=== PATIENT | male | born 1950 | race Caucasian/White ===

== ENCOUNTER → 2017-07-09 08:26 | Outpatient (CLI) | payer MEDICARE, SELFPAY ==
[2017-07-09 12:20] LABS: Anion Gap 6 (5-15); BUN 20 mg/dL (7-18); BUN/Creat Ratio 18.5 RATIO (10-20); Calcium,Total 8.9 mg/dL (8.5-10.1); Chloride 104 mmol/L (98-107); Creatinine, Serum 1.08 mg/dL (0.70-1.30); EST Glomerular Filtration Rate 72 mL/min (>60); Est Glom Filt Rate - Afr Amer 88 mL/min (>60); Glucose 86 mg/dL (74-106); Magnesium 2.1 mg/dL (1.6-2.6); Potassium 3.8 mmol/L (3.5-5.1); Sodium Level 140 mmol/L (136-145); T4 Free Direct 0.92 ng/dL (0.76-1.46); Thyroid Stim Hormone (TSH) 2.46 uIU/mL (0.358-3.74)
== END ==
PROVIDERS: Family Provider Family Medicine; PCP Family Medicine; Visit Provider Family Medicine
DX: R25.2 Cramp and spasm (principal); I10 Essential (primary) hypertension; E78.5 Hyperlipidemia, unspecified
CPT/HCPCS: 36415; 80048; 83735; 84439; 84443

== ENCOUNTER → 2018-01-14 15:01 | Outpatient (CLI) | payer MEDICARE, SELFPAY ==
[2018-01-14 17:27] LABS: Absolute Lymphocyte Count 1.65 X10^3/ul (0.83-4.51); Absolute Neutrophil Count 4.5 X10^3/uL (2.0-7.7); Basophil# 0.04 X10^3/uL; Basophil% 0.6 % (0-1); Eosinophils% 2.8 % (0-5); Hematocrit 43.5 % (40-54); Hemoglobin 14.6 g/dl (13.0-16.5); Lymphocyte # 1.65 X10^3/ul (4.0); Mean Corp Hgb Conc 33.6 g/gl (32-36); Mean Corpuscular Hgb 29.3 pg (27.0-32.0); Mean Corpuscular Volume 87.2 fL (80-94); Mean Platelet Vol. 9.6 fl (6.2-12.0); Monocyte# 0.73 X10^3/uL; Monocyte% 10.2 % (0-10); Neutrophil # 4.53 X10^3/uL (2.7-7.7); Neutrophil % 63.3 % (47-70); Platelet Count 174 K/mm3 (150-450); RBC Distribution Width CV 13.4 % (11.6-14.6); RBC Distribution Width SD 42.6 fl (35.1-43.9); Red Blood Count 4.99 M/mm3 (4.6-6.2); White Blood Count 7.2 K/mm3 (4.4-11.0)
[2018-01-14 17:40] LABS: Anion Gap 11 (5-15); BUN 15 mg/dL (7-18); BUN/Creat Ratio 13.8 RATIO (10-20); Chloride 105 mmol/L (98-107); Creatinine, Serum 1.09 mg/dL (0.70-1.30); EST Glomerular Filtration Rate 72 mL/min (>60); Est Glom Filt Rate - Afr Amer 87 mL/min (>60); Glucose 110 mg/dL (74-106); PSA,Total- Diagnostic 1.24 ng/mL (0.0-4.0); Potassium 3.7 mmol/L (3.5-5.1); Sodium Level 144 mmol/L (136-145)
[2018-01-14 18:08] LABS: POSITIVE COUNT NO; POSITIVE DIFFERENTIAL NO; POSITIVE MORPHOLOGY NO
== END ==
PROVIDERS: Family Provider Family Medicine; PCP Family Medicine; Visit Provider Family Medicine
DX: I10 Essential (primary) hypertension (principal); E78.5 Hyperlipidemia, unspecified; R39.11 Hesitancy of micturition
CPT/HCPCS: 36415; 80048; 84153; 85025

== ENCOUNTER → 2018-02-11 09:42 | Outpatient (CLI) | payer MEDICARE, SELFPAY ==
--- NOTE | 2018-02-11 09:45 | RAD_ITS ---
STUDY: X-RAY - ESOPHAGUS (BARIUM SWALLOW) WITH FLUOROSCOPY REASON FOR EXAM: Male, 67 years old. Dysphasia. TECHNIQUE: 14 fluoroscopic view(s) of the esophagus were obtained following swallowing of barium. FLUOROSCOPY TIME (if supplied): (0:25) minutes/seconds COMPARISON: None. FINDINGS: There is no demonstrated esophageal foreign body. There is no demonstrated stricture or mucosal abnormality. There is a small hiatal hernia of the fundus of the stomach. No evidence of gastric esophageal reflux. The patient ingested a 12 mm tablet of barium without any difficulty. There is atherosclerotic tortuosity of the aortic arch and descending thoracic aorta. Normal visualized pulmonary parenchyma. There are diffuse degenerative changes of the visualized thoracic spine. RAD/Esophagus Only IMPRESSION: Small sliding hiatal hernia without gaseous esophageal reflux. Electronically Signed: Fred Church MD at 8:52 EDT Tel [phone], Service support ,
== END ==
PROVIDERS: Family Provider Family Medicine; PCP Family Medicine; Visit Provider Internal Medicine Gastroenterology
DX: R13.10 Dysphagia, unspecified (principal); K21.9 Gastro-esophageal reflux disease without esophagitis
CPT/HCPCS: 74220

== ENCOUNTER → 2019-01-16 10:30 | Outpatient (CLI) | payer MEDICARE, SELFPAY ==
[2019-01-16 12:47] LABS: Absolute Lymphocyte Count 1.49 X10^3/uL (0.83-4.51); Absolute Neutrophil Count 3.7 X10^3/uL (2.0-7.7); Basophil# 0.05 X10^3/uL; Basophil% 0.8 % (0-1); Eosinophil# 0.17 X10^3/uL; Eosinophils% 2.8 % (0-5); Hematocrit 43.6 % (40-54); Hemoglobin 14.5 g/dL (13.0-16.5); Lymphocyte # 1.49 X10^3/ul (4.0); Lymphocyte % 24.8 % (19-41); Mean Corp Hgb Conc 33.3 g/dL (32-36); Mean Corpuscular Volume 87.2 fL (80-94); Mean Platelet Vol. 9.6 fl (6.2-12.0); Monocyte# 0.63 X10^3/uL; Monocyte% 10.5 % (0-10); NRBC Flagged by Analyzer 0 % (0-5); Neutrophil # 3.67 X10^3/uL (2.7-7.7); Neutrophil % 60.9 % (47-70); Platelet Count 187 K/mm3 (150-450); RBC Distribution Width CV 13.4 % (11.6-14.6); RBC Distribution Width SD 42.5 fl (35.1-43.9)
[2019-01-16 13:22] LABS: ALB/GLOB Ratio 0.9 RATIO (0.9-2.4); AST(SGOT) 31 U/L (15-37); Alanine Aminotransfer ALT/SGPT 40 U/L (16-61); Albumin, Serum 3.9 g/dL (3.2-5.0); Alkaline Phosphatase 83 U/L (45-117); Anion Gap 7 (5-15); BUN 16 mg/dL (7-18); BUN/Creat Ratio 15.7 RATIO (10-20); Calcium,Total 9.2 mg/dL (8.5-10.1); Chloride 109 mmol/L (98-107); Creatinine, Serum 1.02 mg/dL (0.70-1.30); EST Glomerular Filtration Rate 77 mL/min (>60); Est Glom Filt Rate - Afr Amer 93 mL/min (>60); Globulin 4.2 g/dL (2.2-4.2); Glucose 88 mg/dL (74-106); PSA,Total- Diagnostic 1.18 ng/mL (0.0-4.0); Potassium 3.9 mmol/L (3.5-5.1); Protein, Total 8.1 g/dL (6.4-8.2); Sodium Level 141 mmol/L (136-145); Thyroid Stim Hormone (TSH) 1.73 uIU/mL (0.358-3.74)
== END ==
PROVIDERS: Family Provider Family Medicine; PCP Family Medicine; Visit Provider Family Medicine
DX: E78.5 Hyperlipidemia, unspecified (principal); I10 Essential (primary) hypertension; R39.11 Hesitancy of micturition
CPT/HCPCS: 36415; 80053; 84153; 84443; 85025

== ENCOUNTER → 2020-01-17 09:41 | Outpatient (CLI) | payer OTHER, SELFPAY ==
[2020-01-17 12:37] LABS: Absolute Lymphocyte Count 1.45 X10^3/uL (0.83-4.51); Basophil# 0.05 X10^3/uL; Basophil% 0.8 % (0-1); Eosinophil# 0.23 X10^3/uL; Eosinophils% 3.5 % (0-5); Hematocrit 44.5 % (40-54); Hemoglobin 14.8 g/dL (13.0-16.5); Lymphocyte # 1.45 X10^3/ul (4.0); Lymphocyte % 22.1 % (19-41); Mean Corp Hgb Conc 33.3 g/dL (32-36); Mean Corpuscular Hgb 29.2 pg (27.0-32.0); Mean Corpuscular Volume 87.9 fL (80-94); Mean Platelet Vol. 9.7 fl (6.2-12.0); Monocyte# 0.85 X10^3/uL; NRBC Flagged by Analyzer 0 % (0-5); Neutrophil # 3.97 X10^3/uL (2.7-7.7); Neutrophil % 60.4 % (47-70); Platelet Count 187 K/mm3 (150-450); RBC Distribution Width CV 13.2 % (11.6-14.6); RBC Distribution Width SD 42.5 fl (35.1-43.9); Red Blood Count 5.06 M/mm3 (4.6-6.2); White Blood Count 6.6 K/mm3 (4.4-11.0)
[2020-01-17 13:16] LABS: AST(SGOT) 38 U/L (15-37); Alanine Aminotransfer ALT/SGPT 48 U/L (16-61); Albumin, Serum 3.9 g/dL (3.2-5.0); Alkaline Phosphatase 78 U/L (45-117); Anion Gap 5 (5-15); BUN 15 mg/dL (7-18); BUN/Creat Ratio 14.3 RATIO (10-20); Calcium,Total 9.1 mg/dL (8.5-10.1); Chloride 107 mmol/L (98-107); Creatinine, Serum 1.05 mg/dL (0.70-1.30); EST Glomerular Filtration Rate 74 mL/min (>60); Est Glom Filt Rate - Afr Amer 90 mL/min (>60); Globulin 4.1 g/dL (2.2-4.2); Glucose 87 mg/dL (74-106); Potassium 4.1 mmol/L (3.5-5.1); Sodium Level 141 mmol/L (136-145); Thyroid Stim Hormone (TSH) 2.63 uIU/mL (0.358-3.74); Uric Acid 8.1 mg/dL (3.5-7.2)
== END ==
PROVIDERS: PCP Family Medicine; Visit Provider Family Medicine
DX: M10.9 Gout, unspecified (principal); I10 Essential (primary) hypertension; E78.5 Hyperlipidemia, unspecified
CPT/HCPCS: 36415; 80053; 84443; 84550; 85025

== ENCOUNTER → 2020-07-19 11:31 | Outpatient (CLI) | payer OTHER, SELFPAY ==
[2020-07-19 15:31] LABS: Absolute Lymphocyte Count 2.53 X10^3/uL (0.83-4.51); Absolute Neutrophil Count 3.5 X10^3/uL (2.0-7.7); Basophil# 0.05 X10^3/uL; Basophil% 0.7 % (0-1); Eosinophil# 0.19 X10^3/uL; Eosinophils% 2.7 % (0-5); Hemoglobin 15.2 g/dL (13.0-16.5); Lymphocyte # 2.53 X10^3/ul (4.0); Lymphocyte % 35.7 % (19-41); Mean Corpuscular Volume 87.6 fL (80-94); Mean Platelet Vol. 9.5 fl (6.2-12.0); Monocyte# 0.76 X10^3/uL; Monocyte% 10.7 % (0-10); NRBC Flagged by Analyzer 0 % (0-5); Neutrophil # 3.54 X10^3/uL (2.7-7.7); Neutrophil % 49.9 % (47-70); Platelet Count 182 K/mm3 (150-450); RBC Distribution Width CV 13.1 % (11.6-14.6); RBC Distribution Width SD 42.5 fl (35.1-43.9); Red Blood Count 5.25 M/mm3 (4.6-6.2); White Blood Count 7.1 K/mm3 (4.4-11.0)
[2020-07-19 15:41] LABS: AST(SGOT) 33 U/L (15-37); Alanine Aminotransfer ALT/SGPT 52 U/L (16-61); Albumin, Serum 4.2 g/dL (3.2-5.0); Alkaline Phosphatase 87 U/L (45-117); Anion Gap 6 (5-15); BUN 21 mg/dL (7-18); Calcium,Total 9.2 mg/dL (8.5-10.1); Chloride 105 mmol/L (98-107); Creatinine, Serum 1.05 mg/dL (0.70-1.30); EST Glomerular Filtration Rate 74 mL/min (>60); Est Glom Filt Rate - Afr Amer 90 mL/min (>60); Globulin 4.2 g/dL (2.2-4.2); Glucose 82 mg/dL (74-106); Potassium 3.9 mmol/L (3.5-5.1); Protein, Total 8.4 g/dL (6.4-8.2); Sodium Level 140 mmol/L (136-145)
== END ==
PROVIDERS: PCP Family Medicine; Visit Provider Family Medicine
DX: I10 Essential (primary) hypertension (principal); R60.9 Edema, unspecified; R23.3 Spontaneous ecchymoses
CPT/HCPCS: 36415; 80053; 85025

== ENCOUNTER → 2020-10-31 13:58 | Outpatient (CLI) | payer MEDICARE, SELFPAY ==
[2020-10-31 15:25] LABS: PSA,Total - Annual Screen 1.34 ng/mL (0.00-4.00)
== END ==
PROVIDERS: PCP Family Medicine; Referring Provider Urology; Visit Provider Urology
DX: Z12.5 Encounter for screening for malignant neoplasm of prostate (principal)
CPT/HCPCS: 36415; 84153; G0103

== ENCOUNTER 2021-08-21 12:35 | Outpatient (CLI) | payer MEDICARE, SELFPAY ==
--- NOTE | 2021-08-21 12:38 | CT_ITS ---
STUDY: CT RIGHT LOWER EXTREMITY REASON FOR EXAM: Right knee osteoarthritis, surgical planning. TECHNIQUE: Transaxial CT imaging of the lower extremity was performed. Coronal and sagittal images were reformatted. Individualized dose optimization techniques were used for this CT. COMPARISON: MRI images 09/23/2011. FINDINGS: Knee: There are marginal osteophytes of the medial femorotibial compartment and joint space narrowing (coronal image 26). There is preservation of the joint space of the lateral femorotibial compartment. There are small marginal osteophytes of the patellofemoral compartment. There is vacuum phenomenon in the medial femorotibial compartment and a small ossification at the peripheral aspect of the medial femorotibial compartment (coronal reconstruction 28). There is a small popliteal cyst (sagittal reconstruction 51). There is vascular calcification. Hip: There is preservation of joint space. Ankle: Normal tibiotalar, posterior subtalar and talonavicular articulations. There is vascular calcification. CT/Extremity Lower without Contra IMPRESSION: Right knee osteoarthritis. Electronically Signed: Anoop Tabares MD at 14:59 EDT ,
== END 2021-08-21 23:59 | disposition home or self-care (01) ==
LOC: CT 12:36
PROVIDERS: PCP Family Medicine; Referring Provider Orthopaedic Surgery; Visit Provider Orthopaedic Surgery
DX: M17.0 Bilateral primary osteoarthritis of knee (principal); M21.161 Varus deformity, not elsewhere classified, right knee
CPT/HCPCS: 73700

== ENCOUNTER 2021-09-08 07:08 | Day surgery (SDC) | payer MEDICARE, SELFPAY ==
--- NOTE | 2021-08-22 09:38 | EKG12_ITS ---
Test Reason : PRE OP Blood Pressure : / mmHG Vent. Rate : 050 BPM Atrial Rate : 050 BPM P-R Int : 194 ms QRS Dur : 090 ms QT Int : 468 ms P-R-T Axes : 023 -34 021 degrees QTc Int : 426 ms Sinus bradycardia Left axis deviation Abnormal ECG Confirmed by ROGELIO CASTELLANOS, MARIELLA ([id number]), editor farm journal CARLITOS STEELE ([id number]) on 08/22/2021 2:22:53 PM Referred By: Tian Dexter Confirmed By:TERRY MERCADO MD
--- NOTE | 2021-08-22 09:39 | RAD_ITS ---
STUDY: X-RAY CHEST REASON FOR EXAM: Male, 71 years old. PRE OP TECHNIQUE: PA and lateral views of the chest. COMPARISON: Comparison is made with prior study dated 06/20/2012. FINDINGS: Stable elevation of the right hemidiaphragm. Minimal increased linear markings at the left lung base suggests some mild linear scarring. There is no demonstrated pleural abnormality. Normal size heart. Normal mediastinum and jane. Normal visualized pulmonary arteries. There is atherosclerotic tortuosity of the aortic arch and descending thoracic aorta. There are diffuse degenerative changes of the visualized thoracic spine. Normal visualized ribs, clavicles, and shoulders. There is no demonstrated abnormality of the visualized soft tissue structures of the upper abdomen. RAD/Chest PA and Lateral IMPRESSION: No acute abnormality is seen. Electronically Signed: Fred Church MD at 13:01 EDT ,
[2021-08-22 10:07] LABS: Absolute Lymphocyte Count 2.37 X10^3/uL (0.83-4.51); Absolute Neutrophil Count 4.1 X10^3/uL (2.0-7.7); Basophil# 0.04 X10^3/uL; Basophil% 0.5 % (0-1); Eosinophil# 0.18 X10^3/uL; Eosinophils% 2.4 % (0-5); Hematocrit 43.7 % (40-54); Lymphocyte # 2.37 X10^3/ul (0.83-4.51); Mean Corp Hgb Conc 34.3 g/dL (32-36); Mean Corpuscular Hgb 29.2 pg (27.0-32.0); Mean Platelet Vol. 9.3 fl (6.2-12.0); Monocyte% 11.8 % (0-10); NRBC Flagged by Analyzer 0 % (0-5); Neutrophil # 4.13 X10^3/uL (2.7-7.7); Neutrophil % 53.9 % (47-70); Platelet Count 175 K/mm3 (150-450); RBC Distribution Width CV 13.2 % (11.6-14.6); RBC Distribution Width SD 41.1 fl (35.1-43.9); Red Blood Count 5.14 M/mm3 (4.6-6.2); White Blood Count 7.7 K/mm3 (4.4-11.0)
[2021-08-22 11:14] LABS: Anion Gap 5 (5-15); BUN 26 mg/dL (7-18); BUN/Creat Ratio 25.5 RATIO (10-20); Calcium,Total 8.9 mg/dL (8.5-10.1); Chloride 105 mmol/L (98-107); Creatinine, Serum 1.02 mg/dL (0.70-1.30); EST Glomerular Filtration Rate 76 mL/min (>60); Est Glom Filt Rate - Afr Amer 93 mL/min (>60); Glucose 89 mg/dL (74-106); Potassium 3.7 mmol/L (3.5-5.1); Sodium Level 138 mmol/L (136-145)
[2021-09-08] VITALS (11 sets, daily range): BP systolic 107–157; BP diastolic 57–94; PULSE 48–63; RESP 13–18; TEMP 36.1–36.6; O2SAT 30–100; BMI 35.6
--- NOTE | 2021-09-08 | KNEE_PTH ---
PATIENT: RANDY FIGUEROA [place] [facility] [place][id number] AGE/SX: 71/M ROOM: RE09/08/[address]: Dr. Tian Dexter DO : 1950 BED: DIS: 09/08/2021 SPEC #: [id number] RECD: 09/08/21 13:07 STATUS: NEELAM YO #: [id number] KRISTIN: 09/08/21 00:[address]: Tian Dexter DEPT: SURGICAL PATHOLOGY RECD BY: Nadri íRos ENTERED: 09/08/21 13:07 SP TYPE: TOTAL KNEE OTHR DR: Dr. Wei Moreno MD Tissues: Knee, NOS Procedures: Decalcification bone/plaque Surgery Specimen Level IV HEADER OPERATION: ERAS, total knee replacement robotic arm assist PRE-OP DIAGNOSIS: Grade 4 osteoarthritis TISSUE SUBMITTED: Right knee bone MICROSCOPIC DIAGNOSIS Right knee bone, total knee replacement/resection: Pieces of bone with degenerative osteoarthritic changes. Fibroadipose tissue, fibroconnective tissue and reactive synovial tissue. BOSSMAN:myriam 09/11/2021 MICROSCOPIC DESCRIPTION Slides are reviewed. GROSS DESCRIPTION Received is one container designated bone and soft tissue right knee. The specimen consists of multiple fragments of [place]-yellow bone measuring in aggregate 11 x 10 x 3.5 cm. Also in the specimen container are multiple fragments of yellow-white soft tissue measuring in aggregate 9 x 8 x 3 cm. A number of bony fragments contain articular surfaces consistent with tibial plateau and femoral condyle and displaying prominent osteophyte formation, eburnation, and bone erosion. Naval Designer sections are submitted in two cassettes as follows: 1 - soft tissue, 2 - bone after decalcification. / BOSSMAN:myriam 09/08/2021 TC:5 [facility]: [id number], [id number]
[2021-09-08] MEDS: Lactated Ringers 1,000 ML 999 ML IV ×2 (07:00)
[2021-09-08] MEDS: Acetaminophen 500 MG Tablet 1000 MG PO ×2 (07:00→14:53)
[2021-09-08] MEDS: Lactated Ringers 1,000 ML 75 ML IV (07:00)
[2021-09-08] MEDS: Lactated Ringers 1,000 ML 125 ML IV ×2 (07:00→13:54)
[2021-09-08] MEDS: Gabapentin 600 MG Tablet PO (07:00)
[2021-09-08 08:01] LABS: Bedside Glucose 82 mg/dL (74-106)
[2021-09-08] MEDS: TXA 1000mg in NS100 100ml (IVPB at Incision) 660 MG IV (10:35)
[2021-09-08] MEDS: Clindamycin 900 MG/50 ML BAG 75 MG IV ×2 (10:45→14:53)
[2021-09-08] MEDS: TXA 1000mg in NS100 100ml (IVPB at Closure) 660 MG IV (11:53)
--- NOTE | 2021-09-08 12:19 | OP.PCM_ITS ---
Report of Operation Date of Procedure: 09/08/21 Pre-Operative Diagnosis: OA right knee Post-Operative Diagnosis: same Surgery/Procedure Performed:: Right TKR Description of Surgical Findings:: Report of Operation Date of Procedure: 09/08/2021 Preoperative Diagnosis: [ right ] knee primary osteoarthritis Postoperative Diagnosis: [ right ] knee primary osteoarthritis Operation: Robotic Assisted Knee Total Arthroplasty, [right ] knee Surgeon: Dr Tian Dexter DO Parts Department Manager: John Sierra PA-C Anesthesia: spinal Anesthesiologist: Wyatt Dasilva M.D. Findings: Stable knee with good patella tracking Specimen(s): Bony cuts Complications: No intraoperative complications Estimated Blood Loss: 30 cc IV Fluids: 1000 cc crystalloid Implants Used: 1. [employer] press-fit CR size 4 femur 2. [place] [employer] size 5 tibia 3. 35 mm patella 4. 10 mm CS polyethylene Brief History Operative Indications: [ (71 y/o male) ] with history of [ right ] knee osteoarthrosis with radiographic findings with loss of joint space, osteophyte formation and subchondral sclerosis. Failed conservative measures as mentioned in the H&P. Discussion of total knee arthroplasty as well as risk and benefits were discussed with the patient including but not limited to blood loss, DVTs, PEs, neurovascular damage, general risk of anesthesia including loss of life, and stiffness or instability were also discussed with the patient. Patient demonstrated understanding and was able to sign informed consent. Procedure: On the date of procedure, patient's [right ] lower extremity was marked in the preoperative area. The patient was then taken back to the operating room where that patient was placed on the table in the supine position. All bony prominences were identified and well-padded. Anesthesia assumed control of the C-spine and airway throughout the remainder of the procedure. A tourniquet was placed on the [right ] upper thigh and the leg was prepped in a sterile fashion. The surgeon then scrubbed at this time. Upon reentering the room, the [right ] lower extremity was draped in a standard orthopedic fashion. A timeout was then called and everyone agreed upon the side, the site, the procedure to be performed, patient's identity and antibiotics given. Esmarch bandage was used to exsanguinate the extremity and the tourniquet was placed up to 250 mmHg with the knee in flexion. A midline skin incision was made and a sharp dissection was taken down through skin, subcutaneous tissue and fat. The standard medial parapatellar incision was made and the patella was subluxed laterally. An appropriate deep MCL release was done and the fat pad was resected. Our attention was then directed to the patella. The patella was everted and a flat resection was made. The knee was then flexed up and 2 femoral pins were placed inside the incision and 2 tibial pins were placed outside the incision in the medial tibia bicortically. Once this was completed, the 2 checkpoints in the femur and tibia were placed. Knee was then flexed up and the bony landmarks were registered. Once the was completed, the knee taken through range of motion and manually stressed allowing us to plan for an appropriate tibial cut. The robotic arm was brought into the field sterilely and checkpoint and saw were registered. Based on the patient's deformity, the tibial cut was made in [2 degrees varus ]. At this time, the tensioner was then placed in the joint and ligament tension was checked at 90 degrees and full extension. Based on the patient's ligamentous tension, appropriate adjustments were made to the operative plan and ligament releases were done. Once we were happy with our operative plan with balanced flexion and extension gaps, our attention was directed to the femur. The robot was brought into the field sterilely and registered. Posterior condylar cuts, anterior chamfer cuts and anterior cuts were appropriately made for a [ size 4 ] femur. When these were completed, the saws were switched out in the distal femoral and posterior chamfer cuts were made. Protecting the soft tissue throughout this time. A [size 5 ] base plate was selected. The knee was flexed to 90 degrees and soft tissues and posterior osteophytes were removed from the joint. 40 cc of the periarticular injection was injected into the posterior medial corner of the joint. The appropriate trials were then placed on the femur and tibia. A trial polyethylene was trialed to ensure proper balancing and stability of the knee. The appropriate tibial internal rotation was then marked with a bovie. Our attention was then directed to the patella. The lug holes were drilled and the patella trial was placed. Patellar tracking was checked and deemed appro priate. Once we were happy, lug holes were drilled for the femur and trial components were removed. The tibia was subluxed and pinned into place and the keel was punched and drilled appropriately. Final components were verified and opened. The wound was copiously irrigated with normal saline. The components were impacted into place with the tibia, femur and finally the patella. The trial poly component was placed and the knee was placed in full extension. The tracking, alignment and balance were verified and a [ 10 mm CS ] polyethylene component was placed. Once the final components were placed an Irrisept lavage was performed and the wound was copiously irrigated with normal saline solution and the periarticular injection was given. the wound was closed in a layer-pagan fashion using #1 vicryl interrupted sutures for the arthrotomy, 2-0 interrupted vicryl suture for the subcuticular layer and aileen for final skin closure. A sterile compressive dressing was then placed. The patient was then awakened from anesthesia, transferred to the [facility] and transferred to the PACU for recovery. My physician operations administrative assistant was a vital part of this case. He was important in appropriate retraction during the case, and protection of soft tissues during bony cuts. His intimate knowledge of the case and my steps aided in safe and expedient completion of the procedure as well as appropriate position of the leg during the case. He was also vital in assisting with closure under my direct supervision. Due to the complexity of this case, robotic arm was used to assist in the surgery to improve accuracy and clinical outcomes. Post-op Plan: DVT ppx; ASA 81 mg BID, thigh high compression stockings Follow up: in office in 2 weeks for wound check PT: to start POD #0 at hospital, outpatient PT should be arranged. Preoperative antibiotic: Clindamycin 900 mg IV Tian Dexter DO Surgeon: [facility] application development liaison: John Sierra Type of Anesthesia: Spinal Anesthesiologist: Wyatt Dasilva Estimated Blood Loss (mL): 30 cc Fluids Replaced: 1000 cc crystalloid Admit VTE Documentation VTE Present on Admission: No VTE Mechan Device Prophylaxis: SCD's and Thigh High UBALDO Hose VTE Pharm Prophylaxis ordered?: Yes
--- NOTE | 2021-09-08 12:55 | RAD_ITS ---
INDICATION: post op TKR -- in PACU EXAMINATION/TECHNIQUE: X-RAY - RIGHT XR Knee 1 or 2 Views 2 VIEWS COMPARISON: None. FINDINGS: Unremarkable alignment of the femoral and tibial prosthesis. Postoperative changes visualized with soft tissue prominence. Overlying surgical aileen are seen. Degenerative bone changes are seen, no evidence of lytic or sclerotic bone lesions is seen. No evidence of periosteal reaction. RAD/Knee 1 or 2 Views IMPRESSION: Postoperative changes, unremarkable alignment of the right knee prosthesis. Electronically Signed: Christiano Murillo MD at 13:39 EDT ,
[2021-09-08] MEDS: oxyCODONE 5 MG Tablet PO (14:53)
== END 2021-09-08 17:24 | disposition home or self-care (01) ==
LOC: SDC 07:11 → AC 07:12
PROVIDERS: Anesthesiology; PCP Family Medicine; Referring Provider Orthopaedic Surgery; Visit Provider Orthopaedic Surgery
PROC: 0SRC0JZ Replacement of Right Knee Joint with Synthetic Substitute, Open Approach (ICD-10-PCS; CPT 27447; principal; 2021-09-08 09:30)
DX: M17.11 Unilateral primary osteoarthritis, right knee (principal); C80.1 Malignant (primary) neoplasm, unspecified; I10 Essential (primary) hypertension; E78.00 Pure hypercholesterolemia, unspecified; Z87.442 Personal history of urinary calculi; M10.9 Gout, unspecified; G47.30 Sleep apnea, unspecified
CPT/HCPCS: 27447; 01402; 36415; 71046; 73560; 80048; 82962; 83036; 83735; 85025; 87077; 87081; 88305; 88311; 93005; 97162; C1776; J7120; J2405

== ENCOUNTER → 2021-09-15 | Outpatient (CLI) | payer MEDICARE, SELFPAY ==
--- NOTE | 2021-09-15 13:19 | VDLE_ITS ---
Reason For Study: Pain RIGHT GSV is normal. CFV is compressible, spontaneous, phasic, competent and demonstrates normal augmentation. FV is compressible, spontaneous, phasic, competent and demonstrates normal augmentation. POP V is compressible, spontaneous, phasic, competent and demonstrates normal augmentation. T/P Trunk is compressible. PTV is compressible. RT PerV is compressible. Procedure This is a venous duplex using B-mode, color flow and spectral Doppler. Exam performed in department. A preliminary report was called and/or faxed to [facility]. VL/Venous Duplex US, Unilateral Interpretation Summary Deep veins of the right lower extremity are patent and compressible segmentally . There is no evidence of right lower extremity deep vein thrombosis. Valvular competence savannah ears intact within the proximal deep venous system on the right . The right great saphenous vein a ppears patent and compressible segmentally. Ordering Physician: Tian Dexter Referring Physician: Wei Moreno Performed By: Gwendolyn Downing RVT
== END | disposition home or self-care (01) ==
LOC: CVS 12:38
PROVIDERS: PCP Family Medicine; Visit Provider Orthopaedic Surgery
DX: M79.661 Pain in right lower leg (principal)
CPT/HCPCS: 93971

== ENCOUNTER → 2021-12-30 | Outpatient (CLI) | payer MEDICARE, SELFPAY ==
--- NOTE | 2021-12-30 07:38 | CT_ITS ---
STUDY: 60 CT SCAN LOWER EXTREMITY LEFT REASON FOR EXAM: Male, 71 years old. UNILATERAL PRIMARY OSTEOARTHRITIS, L KNEE. NIKITA protocol. RADIATION DOSAGE (If Supplied By Facility): CTDIvol = ( 18.72 ) mGy, DLP = ( 1257.98 ) mGycm. Individualized dose optimization techniques were used for this CT.? TECHNIQUE: Multiple axial tomographic images of the left hip, left knee and left ankle joints were obtained. Coronal and sagittal construction was obtained as well. COMPARISON: None. FINDINGS: Imaging of the hip joint was obtained. Minimal joint space narrowing. No bony abnormality is seen. Imaging of the knee joint was obtained. There is a marked degree of joint space narrowing with degenerative spur formation involving the medial compartment of the knee joint. This also evidence of a loose intra-articular bodies in the posterior aspect of the knee joint. Mild patellofemoral osteoarthritis. Imaging of the ankle joint was obtained. No significant abnormality is seen. CT/Extremity Lower without Contra IMPRESSION: Moderate degree of joint space narrowing involving the medial compartment of the knee joint with degenerative spur formation and posterior intra-articular loose bodies. Electronically Signed: Fred Church MD at 11:01 EDT ,
== END | disposition home or self-care (01) ==
PROVIDERS: PCP Family Medicine; Referring Provider Orthopaedic Surgery; Visit Provider Orthopaedic Surgery
DX: M17.12 Unilateral primary osteoarthritis, left knee (principal)
CPT/HCPCS: 73700

== ENCOUNTER 2022-01-12 05:18 | Day surgery (SDC) | payer MEDICARE, SELFPAY ==
--- NOTE | 2022-01-01 09:19 | EKG12_ITS ---
Test Reason : PRE-OP Blood Pressure : / mmHG Vent. Rate : 055 BPM Atrial Rate : 055 BPM P-R Int : 188 ms QRS Dur : 084 ms QT Int : 448 ms P-R-T Axes : 022 -32 -07 degrees QTc Int : 428 ms Sinus bradycardia Left axis deviation Inferior infarct , age undetermined Abnormal ECG Confirmed by MARC CASTELLANOS, DEBORAH ([id number]), supervising editor trailer CARLITOS STEELE ([id number]) on 01/02/2022 1:51:23 PM Referred By: Tian Dexter Confirmed By:DEBORAH TRAN MD
[2022-01-01 10:38] LABS: Absolute Lymphocyte Count 2.23 X10^3/uL (0.83-4.51); Absolute Neutrophil Count 3.8 X10^3/uL (2.0-7.7); Basophil# 0.04 X10^3/uL; Basophil% 0.6 % (0-1); Eosinophil# 0.25 X10^3/uL; Eosinophils% 3.5 % (0-5); Hematocrit 43.1 % (40-54); Hemoglobin 14.3 g/dL (13.0-16.5); Lymphocyte # 2.23 X10^3/ul (0.83-4.51); Mean Corp Hgb Conc 33.2 g/dL (32-36); Mean Corpuscular Hgb 28.3 pg (27.0-32.0); Mean Corpuscular Volume 85.2 fL (80-94); Mean Platelet Vol. 9.3 fl (6.2-12.0); Monocyte# 0.85 X10^3/uL; Monocyte% 11.8 % (0-10); NRBC Flagged by Analyzer 0 % (0-5); Neutrophil # 3.79 X10^3/uL (2.7-7.7); Neutrophil % 52.7 % (47-70); Platelet Count 201 K/mm3 (150-450); RBC Distribution Width SD 43.2 fl (35.1-43.9); Red Blood Count 5.06 M/mm3 (4.6-6.2); White Blood Count 7.2 K/mm3 (4.4-11.0)
[2022-01-01 11:12] LABS: Hemoglobin A1c 5.3 % (3.8-5.6)
[2022-01-01 11:16] LABS: Magnesium 2.1 mg/dL (1.6-2.6); PSA,Total - Annual Screen 1.35 ng/mL (0.00-4.00)
[2022-01-01 11:21] LABS: Albumin, Serum 3.7 g/dL (3.2-5.0); Anion Gap 6 (5-15); BUN 18 mg/dL (7-18); BUN/Creat Ratio 18.3 RATIO (10-20); Calcium,Total 9.1 mg/dL (8.5-10.1); Chloride 105 mmol/L (98-107); Creatinine, Serum 0.98 mg/dL (0.70-1.30); EST Glomerular Filtration Rate 80 mL/min (>60); Est Glom Filt Rate - Afr Amer 96 mL/min (>60); Glucose 80 mg/dL (74-106); Potassium 3.5 mmol/L (3.5-5.1); Sodium Level 139 mmol/L (136-145)
--- NOTE | 2022-01-06 13:41 | CASEMGMT ---
ADRIANA HOOKS Assessment: TC to pt for initial transition planning/care coordination assessment. ADRIANA HOOKS introduced self and role at [facility], pt voices understanding and consents to assessment. Pt is A/O x4 and answers all questions appropriately at this time. Care providers, pharmacy, and demographics verified/updated. Admitting Dx: L Total Knee with NIKITA PCP:Josh Specialists:[facility], ortho; Alonso, derm; Christina, uro; Sibilia, pulm Preferred Pharmacy: [facility] [place] Insurance: [facility] [employer] Prescription Benefit: yes LW/HPOA: Pt states he has a LW/DPOA and his DPOA is his . He is aware he can bring in to be scanned into his chart on day of surgery as this is not on file. LNOK: Bettina Miller, Living Arrangements: Pt lives with in a single story house with 3 steps to enter with a rail. Pt reports he is I in ADL's and denies concerns at home. Transportation: Pt drives self and denies concerns with transportation. Pt states his is able to transport him until he can drive again post surgery. DME/HHC/SNF: Pt has a FWW and cane that he does not normally use, grab bars in the bathroom and a CPAP. Pt denies hx of HHC or SNF stays. Pt states no concerns with going home at time of dc. He states he had his other knee replaced this year. Pt has his first outpt therapy appt set up at [facility] on 01/14/2022. Pt states no further concerns/needs. CM to follow. Advised pt to ask CM if any further question/concerns/needs arise when pt hospitalized, voices understanding. Pt Goal: Home with outpt therapy already set up. Plan: Home with outpt therapy already set up.
[2022-01-12] VITALS (13 sets, daily range): BP systolic 112–160; BP diastolic 58–79; PULSE 66–98; RESP 16–20; TEMP 36.2–37; O2SAT 90–98; BMI 34.7
--- NOTE | 2022-01-12 | KNEE_PTH ---
PATIENT: RANDY FIGUEROA LOC: [facility] – [place] U#:[id number] AGE/SX: 71/M ROOM: RE01/12/[address]: Dr. Tian Dexter DO : 1950 BED: DIS: 01/12/2022 SPEC #: [id number] RECD: 01/12/22 18:18 STATUS: NEELAM RELeandro #: [id number] KRISTIN: 01/12/22 00:[address]: Tian Dexter DEPT: SURGICAL PATHOLOGY RECD BY: Nadir Ríos ENTERED: 01/13/22 10:52 SP TYPE: TOTAL KNEE OTHR DR: MD Dr. José Clark MD Dr. Scott Hannan, MD Tissues: Knee, NOS Procedures: Decalcification bone/plaque Surgery Specimen Level IV HEADER OPERATION: ERAS, total knee replacement robotic arm assist PRE-OP DIAGNOSIS: Osteoarthritis left knee TISSUE SUBMITTED: Bone and soft tissue of left knee MICROSCOPIC DIAGNOSIS Bone and soft tissue of left knee, total knee resection: Severe degenerative joint disease. Mild synovial hyperplasia. AM:myriam 01/16/2022 MICROSCOPIC DESCRIPTION Slides are reviewed. GROSS DESCRIPTION Received is one container designated bone and soft tissue left knee. The specimen consists of multiple fragments of [place]-yellow bone measuring in aggregate 15 x 13 x 1.5 cm. Also in the specimen container are multiple fragments of yellow-white soft tissue measuring in aggregate 11 x 9 x 2.5 cm. A number of bony fragments contain articular surfaces consistent with tibial plateau and femoral condyle and displaying prominent osteophyte formation, eburnation, and bone erosion. Support Coordinator sections are submitted in two cassettes as follows: 1 - soft tissue, 2 - bone after decalcification. / AM:myriam 01/13/2022 :5 CPT: 85219, [id number]
[2022-01-12] MEDS: Lactated Ringers 1,000 ML 15 ML IV (06:15)
[2022-01-12] MEDS: Gabapentin 600 MG Tablet PO (06:16)
[2022-01-12] MEDS: Acetaminophen 500 MG Tablet 1000 MG PO (06:16)
[2022-01-12 07:15] LABS: Bedside Glucose 79 mg/dL (74-106)
[2022-01-12] MEDS: 0.9% Normal Saline 1,000 ML 125 ML IV (08:00)
[2022-01-12] MEDS: Lactated Ringers 1,000 ML 125 ML IV (08:00)
[2022-01-12] MEDS: TXA 1000mg in NS100 100ml (IVPB at Incision) 660 MG IV (08:17)
[2022-01-12] MEDS: TXA 1000mg in NS100 100ml (IVPB at Closure) 660 MG IV (09:19)
--- NOTE | 2022-01-12 09:37 | OP.PCM_ITS ---
Report of Operation Date of Procedure: 01/12/22 Pre-Operative Diagnosis: OA left knee Post-Operative Diagnosis: same Surgery/Procedure Performed:: Left TKR Description of Surgical Findings:: Report of Operation Date of Procedure: 01/12/22 Preoperative Diagnosis: [ left ] knee primary osteoarthritis Postoperative Diagnosis: [left ] knee primary osteoarthritis Operation: Robotic Assisted Knee Total Arthroplasty, [left ] knee Surgeon: Dr Tian Dexter DO Director Of Strategic Partnerships: John Sierra PA-C Anesthesia: general Anesthesiologist: Tomás Elise M.D. Findings: Stable knee with good patella tracking Specimen(s): Bony cuts Complications: No intraoperative complications Estimated Blood Loss: 20 cc IV Fluids: 1000 cc crystalloid Implants Used: 1. Kathy Triathlon press-fit CR size 4 femur 2. Kathy Triathlon size 5 tibia 3. 35 mm patella 4. 9 mm CS polyethylene Brief History Operative Indications: [ (71 y/o male) ] with history of [left ] knee osteoarthrosis with radiographic findings with loss of joint space, osteophyte formation and subchondral sclerosis. Failed conservative measures as mentioned in the H&P. Discussion of total knee arthroplasty as well as risk and benefits were discussed with the patient including but not limited to blood loss, DVTs, PEs, neurovascular damage, general risk of anesthesia including loss of life, and stiffness or instability were also discussed with the patient. Patient demonstrated understanding and was able to sign informed consent. Procedure: On the date of procedure, patient's [left ] lower extremity was marked in the preoperative area. The patient was then taken back to the operating room where that patient was placed on the table in the supine position. All bony prominences were identified and well-padded. Anesthesia assumed control of the C-spine and airway throughout the remainder of the procedure. A tourniquet was placed on the [left ] upper thigh and the leg was prepped in a sterile fashion. The surgeon then scrubbed at this time. Upon reentering the room, the [left ] lower extremity was draped in a standard orthopedic fashion. A timeout was then called and everyone agreed upon the side, the site, the procedure to be performed, patient's identity and antibiotics given. Esmarch bandage was used to exsanguinate the extremity and the tourniquet was placed up to 250 mmHg with the knee in flexion. A midline skin incision was made and a sharp dissection was taken down through skin, subcutaneous tissue and fat. The standard medial parapatellar incision was made and the patella was subluxed laterally. An appropriate deep MCL release was done and the fat pad was resected. Our attention was then directed to the patella. The patella was everted and a flat resection was made. The knee was then flexed up and 2 femoral pins were placed inside the incision and 2 tibial pins were placed outside the incision in the medial tibia bicortically. Once this was completed, the 2 checkpoints in the femur and tibia were placed. Knee was then flexed up and the bony landmarks were registered. Once the was completed, the knee taken through range of motion and manually stressed allowing us to plan for an appropriate tibial cut. The robotic arm was brought into the field sterilely and checkpoint and saw were registered. Based on the patient's deformity, the tibial cut was made in [ 1 degree varus ]. At this time, the tensioner was then placed in the joint and ligament tension was checked at 90 degrees and full extension. Based on the patient's ligamentous tension, appropriate adjustments were made to the operative plan and ligament releases were done. Once we were happy with our operative plan with balanced flexion and extension gaps, our attention was directed to the femur. The robot was brought into the field sterilely and registered. Posterior condylar cuts, anterior chamfer cuts and anterior cuts were appropriately made for a [ size 4 ] femur. When these were completed, the saws were switched out in the distal femoral and posterior chamfer cuts were made. Protecting the soft tissue throughout this time. A [size 5 ] base plate was selected. The knee was flexed to 90 degrees and soft tissues and posterior osteophytes were removed from the joint. 40 cc of the periarticular injection was injected into the posterior medial corner of the joint. The appropriate trials were then placed on the femur and tibia. A trial polyethylene was trialed to ensure proper balancing and stability of the knee. The appropriate tibial internal rotation was then marked with a bovie. Our attention was then directed to the patella. The lug holes were drilled and the patella trial was placed. Patellar tracking was checked and deemed appropriate. Once we were happy, lug holes were drilled for the femur and trial components were removed. The tibia was subluxed and pinned into place and the keel was punched and drilled appropriately. Final components were verified and opened. The wound was copiously irrigated with normal saline. The components were impacted into place with the tibia, femur and finally the patella. The trial poly component was placed and the knee was placed in full extension. The tracking, alignment and balance were verified and a [9 mm CS ] polyethylene component was placed. Once the final components were placed an Irrisept lavage was performed and the wound was copiously irrigated with normal saline solution and the periarticular injection was given. the wound was closed in a layer-pagan fashion using #1 vicryl interrupted sutures for the arthrotomy, 2-0 interrupted vicryl suture for the subcuticular layer and aileen for final skin closure. A sterile compressive dressing was then placed. The patient was then awakened from anesthesia, transferred to the rpaterson and transferred to the PACU for recovery. My physician clinical research assistant was a vital part of this case. He was important in appropriate retraction during the case, and protection of soft tissues during bony cuts. His intimate knowledge of the case and my steps aided in safe and expedient completion of the procedure as well as appropriate position of the leg during the case. He was also vital in assisting with closure under my direct supervision. Due to the complexity of this case, robotic arm was used to assist in the surgery to improve accuracy and clinical outcomes. Post-op Plan: DVT ppx; ASA 81 mg BID, thigh high compression stockings Follow up: in office in 2 weeks for wound check PT: to start POD #0 at hospital, outpatient PT should be arranged. Preoperative antibiotic: Clindamycin 900 mg IV Tian Dexter DO Surgeon: Tian Dexter yard hand: John Sierra Type of Anesthesia: General Anesthesiologist: Tomás Elise Estimated Blood Loss (mL): 20 cc Fluids Replaced: 1000 cc crystalloid Admit VTE Documentation VTE Present on Admission: No VTE Mechan Device Prophylaxis: SCD's and Thigh High UBALDO Hose VTE Pharm Prophylaxis ordered?: Yes
--- NOTE | 2022-01-12 10:17 | RAD_ITS ---
STUDY: X-RAY - LEFT KNEE REASON FOR EXAM: Male, 71 years old. Post - op TKR -- in PACU TECHNIQUE: 2 view(s) of the knee. COMPARISON: None. FINDINGS: Normal visualized distal femur. Normal visualized proximal tibia and fibula. Normal proximal tibiofibular articulation. The patient is status post total knee replacement. There is good alignment. Postoperative soft tissue changes. RAD/Knee 1 or 2 Views IMPRESSION: Status post total knee replacement. There is good alignment. Postoperative soft tissue changes. Electronically Signed: Fred Church MD at 14:31 EDT ,
[2022-01-12] MEDS: oxyCODONE 5 MG Tablet PO (13:45)
== END 2022-01-12 15:10 | disposition home or self-care (01) ==
LOC: SDC 05:18 → AC 05:19
PROVIDERS: Anesthesiology; PCP Family Medicine; Referring Provider Orthopaedic Surgery; Visit Provider Orthopaedic Surgery
PROC: 0SRD0JZ Replacement of Left Knee Joint with Synthetic Substitute, Open Approach (ICD-10-PCS; CPT 27447; principal; 2022-01-12 07:30)
DX: M17.12 Unilateral primary osteoarthritis, left knee (principal); E78.00 Pure hypercholesterolemia, unspecified; M10.9 Gout, unspecified; I10 Essential (primary) hypertension; G47.30 Sleep apnea, unspecified; E66.9 Obesity, unspecified; Z71.3 Dietary counseling and surveillance; Z68.35 Body mass index [BMI] 35.0-35.9, adult; Z99.89 Dependence on other enabling machines and devices; Z12.5 Encounter for screening for malignant neoplasm of prostate; Z79.899 Other long term (current) drug therapy
CPT/HCPCS: 27447; 01402; 36415; 73560; 80048; 82040; 82962; 83036; 83735; 84153; 85025; 87081; 88305; 88311; 93005; 97162; C1776; J7120; G0103; J2405

== ENCOUNTER → 2022-01-19 | Outpatient (CLI) | payer MEDICARE, SELFPAY ==
--- NOTE | 2022-01-19 14:49 | VDLE_ITS ---
Reason For Study: Pain Procedure LEFT This is a venous duplex using B-mode, color GSV is normal. flow and spectral Doppler. CFV is compressible, spontaneous, phasic, Exam performed in department. competent, and demonstrates normal A preliminary report was called and/or faxed augmentation. to [facility]. FV is compressible, spontaneous, phasic, competent and demonstrates normal augmentation. POP V is compressible, spontaneous, phasic, competent and demonstrates normal augmentation. T/P Trunk is compressible. PTV is compressible. LT PerV is compressible. VL/Venous Duplex US, Unilateral Interpretation Summary Deep veins of the left lower extremity are patent and compressible segmentally. There is no evidence of left lower extremity deep vein thrombosis. Valvular competence appears intac t within the proximal deep venous system on the left . The left great saphenous vein appears patent a nd compressible segmentally. Ordering Physician: Tian Dexter Referring Physician: Wei Moreno Performed By: Gwendolyn Downing RVT
== END | disposition home or self-care (01) ==
LOC: CVS 14:45
PROVIDERS: PCP Family Medicine; Visit Provider Orthopaedic Surgery
DX: M79.605 Pain in left leg (principal)
CPT/HCPCS: 93971

== ENCOUNTER 2022-03-16 23:56 | Inpatient (IN) | payer MEDICARE, SELFPAY ==
[2022-03-16 23:57] VITALS: BP 179/93; PULSE 74; RESP 15; TEMP 36.7; O2SAT 96; BMI 34.7
[2022-03-17] VITALS (7 sets, daily range): BP systolic 136–152; BP diastolic 69–92; PULSE 60–71; RESP 16–18; TEMP 36.4–36.8; O2SAT 93–94; BMI 33.7
--- NOTE | 2022-03-17 00:20 | CT_ITS ---
STUDY: CT ABDOMEN AND PELVIS WITHOUT CONTRAST REASON FOR EXAM: Male, 71 years old. Pain RADIATION DOSAGE (If Supplied By Facility): CTDIvol = ( 15.40 ) mGy, DLP = ( 800.14 ) mGycm TECHNIQUE: Transaxial images were obtained from the dome of the diaphragm to the symphysis pubis without oral contrast, and without intravenous contrast. Sagittal and coronal images were reconstructed. Individualized dose optimization techniques were used for this CT. COMPARISON: None. FINDINGS: The visualized lung bases are unremarkable. The visualized portions of the heart are within normal limits. There is decreased attenuation of the liver consistent with steatosis. Normal gallbladder and extrahepatic biliary system. Normal spleen. Normal pancreas. Normal bilateral adrenal glands. There is 9 mm stone in the proximal right ureter with resultant mild right hydronephrosis. 2 mm nonobstructive stone in the left kidney. Normal visualized stomach. Normal small intestine. Normal colon. The appendix is visualized and appears normal. Normal abdominal aorta. Normal inferior vena cava. Normal retroperitoneum. Normal urinary bladder. Normal abdominal wall. There are diffuse degenerative changes of the visualized lumbar spine. CT/Abdomen/Pelvis without Cont IMPRESSION: There is 9 mm stone in the proximal right ureter with resultant mild right hydronephrosis. Electronically Signed: Neymar Pagan MD at 1:13 EDT ,
--- NOTE | 2022-03-17 00:22 | EDS_ITS ---
HPI HPI - GI History of Present Illness Chief Complaint: Flank Pain Detail of Chief Complaint: Left flank pain Informant: patient Abdominal Pain/Flank Pain Onset: Yesterday Context: Gradual Onset Timing: Continuous Quality: Aching Location: Left Flank Current Severity: Mild Maximum Severity: Moderate Worsened by: Nothing Relieved by: Nothing Nausea/Vomiting/Emesis GI Symptom: Positive for Nausea; Negative for Vomiting Onset: Today and Yesterday Severity: Mild Diarrhea/Melena/Hematochezia GI Symptom: Negative for Diarrhea, Melena or Hematochezia Associated Symptoms Associated Symptoms: Negative for Dysuria, Frequency, Hematuria or Urgency Narrative Narrative: 71-year-old male with right flank pain began on Wednesday. Prior history of kidney stones. No fever or chills. Nausea no vomiting. Prior similar symptoms: Yes Recent Illness/Hospitalization: No PFSH PFSH Medical History Arthritis Cancer Eczema Essential hypertension Gastric reflux History of edema Hyperlipidemia GERSON on CPAP Osteoarthritis Psoriasis Wears glasses Home Medications amlodipine 5 mg tablet 5 mg PO DAILY 08/27/21 [History Last Taken 01/12/22 04:00] triamterene 50 mg capsule 50 mg PO DAILY 08/27/21 [History Last Taken Unknown] atenolol 50 mg tablet 25 mg PO DAILY 01/07/22 [History Last Taken 01/12/22 04:00] pantoprazole 40 mg tablet,delayed release 40 mg PO QODAY 01/07/22 [History Last Taken 01/12/22 04:00] pravastatin 40 mg tablet 20 mg PO QHS 01/07/22 [History Last Taken Unknown] Allergy/AdvReac Type Severity Reaction Status Date / Time Penicillins [PCN] Allergy Hives Verified 01/12/22 06:11 JOY Inhibitors AdvReac Severe Other Verified 01/12/22 08:00 erythromycin base AdvReac Nausea/Vom/ Verified 01/12/22 06:11 Diarrhea Family History Father Heart disease Mother Hypertension Grandfather Cancer Grandmother Cancer Grandfather Diabetes Hypertension Brother , 2007 Cancer brain Surgical History Hx of knee surgery Hx of total knee replacement Social History Smoking Status: Never smoker alcohol intake: current substance use type: does not use caffeine: Yes ROS ROS ED ROS Narrative Right flank pain. Nausea. No dysuria. No fever. Review of Systems ROS Unobtainable: Denies due to encephalopathy Constitutional Constitutional ED: Denies chills or fever(s) ENT ENT ED: Denies ear pain Cardiovascular Cardiovascular: Denies chest pain Respiratory/Chest Respiratory/Chest: Denies cough or dyspnea Gastrointestinal Gastrointestinal: Reports abdominal pain, constipation and nausea; Denies diarrhea, melena or vomiting Genitourinary Genitourinary ED: Denies dysuria or hematuria Musculoskeletal Musculoskeletal: Reports back pain; Denies arthralgias Integumentary Denies abscess Neurologic Neurologic: Denies headache(s) Psychiatric Psychiatric: Denies anxiety Endocrine Endocrinology: Denies polydipsia Hematologic/Lymphatic Hematologic/Lymphatic: Denies easy bleeding Allergic/Immunologic Allergic/Immunologic ED: Denies mouth swelling, tongue swelling or urticaria EXAM Physical Exam Narrative Exam Narrative: 71-year-old male no acute distress. Vital signs stable afebrile EENT exam unremarkable. Neck is nontender. Lungs clear to auscultation. Heart regular rhythm no murmur. Abdomen soft nontender. Back nontender. No CVA tenderness. Moving all 4 extremities. Neurologically is awake alert. No focal motor deficits. Const Vital Signs: 03/16/22 23:57 Temperature 98.1 F Temperature Source Temporal Pulse Rate 74 Respiratory Rate 15 Blood Pressure 179/93 H Blood Pressure Mean 121 Pulse Ox 96 Oxygen Delivery Method Room Air Positive well nourished, well developed and obese; Negative for cachectic, contractures or unkempt General Appearance ED: well developed and NAD; Negative for unkempt, cachectic, contractures or pallor Nutritional Appearance: obese; Negative for cachectic HEENT Reports moist mucous membranes; Denies dry mucous membranes normocephalic and atraumatic; Negative for trauma Mouth ED: No dry mucous membranes Mouth: No dry mucous membranes Eyes PERRL and EOMs intact bilaterally General Eye ED: Negative for pale conjunctiva or scleral icterus Neck no lymphadenopathy, supple and no JVD General: Negative for tenderness Carotids: Negative for other Lymph Lymphatic: Negative for other Resp normal respiratory effort and clear to auscultation bilaterally Effort and Inspection: Negative for respiratory distress Auscultation: Negative for rales, rhonchi or wheezes Cardio regular rate, regular rhythm, S1 normal heart sound, S2 normal heart sound and no murmurs Rate: Negative for bradycardia Rhythm: Negative for abnormal rhythm GI non-tender, non-distended and no masses Inspection: Negative for abdominal distention Auscultation: normoactive bowel sounds Palpation: soft; Negative for tender or guarding Back/Spine no CVA tenderness General Back: Negative for CVA tenderness Cervical Spine: Negative for cervical spine tenderness Thoracic Spine / Upper Back: Negative for thoracic spinal tenderness Lumbar Spine / Lower Back: Negative for lumbar spinal tenderness Extremity full ROM General Extremety ED: Negative for edema or tenderness General Extremity: Negative for edema Neuro moves all extremities Sensorium / Orientation: alert, oriented to person, oriented to place and oriented to time; Negative for orientation impaired, confused, lethargic or stuporous Motor Exam: strength 5/5 throughout Psych mental status grossly normal and thought process normal Appearance: Negative for unkempt Attitude: No agitated Mood & Affect: Negative for depressed, anxious or tearful Skin no wounds General Skin Exam: Negative for jaundice or pallor Lesions: no lesions Rashes: no rashes Trauma: Negative for abrasion Nails: Negative for discolored MDM MDM MDM Narrative Medical decision making narrative: 71-year-old prior history of kidney stones with right flank pain. Clinically suspect kidney stone. CAT scan, labs and urinalysis to be obtained. Treated with IV fluids, morphine and Zofran. Repeat exam at 3 AM patient doing much better. Pain is currently a 2 out of 10. He Discussed his test results and the 9 mm stone on the right. We discussed options of admission for pain control and urology evaluation later in the morning or discharged home. He preferred to stay. I have the urologist on page. Lab Data Attestation: I reviewed the patient's lab results. Lab results narrative: CBC normal. White count 9. H&H 14 and 41. Electrolytes unremarkable gap of 5. BUN 29 creatinine 1.85. Liver enzymes normal. Urinalysis negative. Other than 10 occult blood on the macroscopic. Negative microscopic with no white or red cells nor any bacteria. CAT scan shows a proximal right ureteral 9 mm stone with hydroureter and hydronephrosis. Read by the radiologist and reviewed by me. Labs: Laboratory Results - last 24 hr 03/17/22 03/17/22 03/17/22 00:52 00:52 00:52 WBC 9.7 RBC 4.97 Hgb 14.0 Hct 41.3 MCV 83.1 MCH 28.2 MCHC 33.9 RDW Std Deviation 42.7 RDW Coeff of Lisa 14.2 Plt Count 177 MPV 9.2 Immature Gran % (Auto) 0.400 Neut % (Auto) 67.1 Lymph % (Auto) 19.5 [place] % (Auto) 10.7 H Eos % (Auto) 1.8 Baso % (Auto) 0.5 Absolute Neuts (auto) 6.5 Absolute Lymphs (auto) 1.88 Nucleated RBC % 0 Sodium 138 Potassium 3.6 Chloride 105 Carbon Dioxide 28.0 Anion Gap 5 BUN 29 H Creatinine 1.85 H Estim Creat Clear Calc 31.86 Est GFR (MDRD) Af Amer 47 L Est GFR (MDRD) Non-Af 38 L BUN/Creatinine Ratio 15.7 Glucose 103 Calcium 9.3 Total Bilirubin 0.60 AST 30 ALT 28 Alkaline Phosphatase 92 Total Protein 8.3 H Albumin 4.0 Globulin 4.3 H Albumin/Globulin Ratio 0.9 Urine Color Yellow Urine Clarity Clear Urine pH 7.0 Ur Specific [place] 1.010 Urine Protein 30 H Urine Glucose (UA) Normal Urine Ketones Negative Urine Occult Blood 10 H Urine Nitrite Negative Urine Bilirubin Negative Urine Urobilinogen Normal Ur Leukocyte Esterase Negative Urine RBC 0 SEEN Urine WBC 0 SEEN Ur Squamous Epith Cells 0 SEEN Urine Bacteria 0 SEEN Urine Mucus 0 SEEN Radiography Diagnostic Testing: Clinical Impression(s) from Imaging Studies Abdomen/Pelvis CT 03/17/22 00:20 IMPRESSION: There is 9 mm stone in the proximal right ureter with resultant mild right hydronephrosis. Electronically Signed: Neymar Pagan MD at 1:13 EDT , Discharge Plan Triage Chief Complaint: Flank Pain ED Provider: Dante Duke Dx/Rx/DC Orders Clinical Impression: Acute flank pain, Right ureteral calculus, Acute kidney injury, History of hypertension Prescriptions: No Action amlodipine 5 mg tablet 5 mg PO DAILY Label Comments: TAKE 1 TABLET BY MOUTH DAILY triamterene 50 mg capsule 50 mg PO DAILY Label Comments: TAKE 1 CAPSULE BY MOUTH EVERY DAY atenolol 50 mg tablet 25 mg PO DAILY Label Comments: TAKE 1 TABLET BY MOUTH EVERY DAY pantoprazole 40 mg tablet,delayed release (DR/EC) 40 mg PO QODAY Label Comments: TAKE 1 TABLET BY MOUTH EVERY OTHER DAY pravastatin 40 mg tablet 20 mg PO QHS Primary Care Provider: Wei Moreno Referrals: Wei Moreno MD [Primary Care Provider] -
[2022-03-17] MEDS: morphine 8 MG/ML Syringe 6 MG IV ×2 (00:42→04:08)
[2022-03-17] MEDS: 0.9% Normal Saline 1,000 ML 1000 ML IV (00:42)
[2022-03-17] MEDS: Ondansetron 4 MG/2 ML Vial IV ×4 (00:45→21:19)
[2022-03-17 00:55] LABS: Absolute Lymphocyte Count 1.88 X10^3/uL (0.83-4.51); Absolute Neutrophil Count 6.5 X10^3/uL (2.0-7.7); Bacteria 0 SEEN /hpf (None Seen); Basophil# 0.05 X10^3/uL; Basophil% 0.5 % (0-1); Eosinophil# 0.17 X10^3/uL; Eosinophils% 1.8 % (0-5); Hematocrit 41.3 % (40-54); Lymphocyte # 1.88 X10^3/ul (0.83-4.51); Lymphocyte % 19.5 % (19-41); Mean Corp Hgb Conc 33.9 g/dL (32-36); Mean Corpuscular Hgb 28.2 pg (27.0-32.0); Mean Corpuscular Volume 83.1 fL (80-94); Mean Platelet Vol. 9.2 fl (6.2-12.0); Monocyte# 1.03 X10^3/uL; Monocyte% 10.7 % (0-10); Mucous, Urine 0 SEEN /hpf (<or=2+); NRBC Flagged by Analyzer 0 % (0-5); Neutrophil # 6.48 X10^3/uL (2.7-7.7); Neutrophil % 67.1 % (47-70); Platelet Count 177 K/mm3 (150-450); RBC Distribution Width CV 14.2 % (11.6-14.6); RBC Distribution Width SD 42.7 fl (35.1-43.9); Red Blood Cells-Urine 0 SEEN /hpf (0-5); Red Blood Count 4.97 M/mm3 (4.6-6.2); Squamous Epithelial Cells - UA 0 SEEN /hpf (0-5); White Blood Cells 0 SEEN /hpf (0-5); White Blood Count 9.7 K/mm3 (4.4-11.0)
[2022-03-17 00:59] LABS: Color, Urine Yellow (Yellow); Glucose, Dipstick Normal (Normal); Ketone-Dipstick Negative (Negative); Leukocyte Esterase-Dipstick Negative /ul (Negative); Nitrite-Dipstick Negative (Negative); Occult Blood-Urine 10 /ul (Negative); Protein-Dipstick 30 mg/dl (Negative); Urine Bilirubin Dipstick Negative (Negative); Urine Clarity Clear (Clear); Urine Urobilinogen Normal (Normal)
[2022-03-17 01:12] LABS: ALB/GLOB Ratio 0.9 RATIO (0.9-2.4); AST(SGOT) 30 U/L (15-37); Alanine Aminotransfer ALT/SGPT 28 U/L (16-61); Alkaline Phosphatase 92 U/L (45-117); Anion Gap 5 (5-15); BUN 29 mg/dL (7-18); BUN/Creat Ratio 15.7 RATIO (10-20); Calcium,Total 9.3 mg/dL (8.5-10.1); Chloride 105 mmol/L (98-107); Creatinine, Serum 1.85 mg/dL (0.70-1.30); EST Glomerular Filtration Rate 38 mL/min (>60); Est Glom Filt Rate - Afr Amer 47 mL/min (>60); Estimated Creatinine Clearance 31.86 ml/min; Globulin 4.3 g/dL (2.2-4.2); Glucose 103 mg/dL (74-106); Potassium 3.6 mmol/L (3.5-5.1); Protein, Total 8.3 g/dL (6.4-8.2); Sodium Level 138 mmol/L (136-145)
--- NOTE | 2022-03-17 05:55 | RAD_ITS ---
STUDY: XR Abdomen 1 View 03/17/2022 9:12 AM REASON FOR EXAM: Male, 71 years old. ABDOMINAL PAIN stone placement TECHNIQUE: XR Abdomen 1 View COMPARISON: None FINDINGS: Normal visualized lung bases. There is an unremarkable bowel gas pattern. There is no demonstrated free abdominal air. The visualized liver, spleen and kidneys are grossly normal in size and morphology. Normal soft tissue structures. There are diffuse degenerative changes of the visualized lumbar spine. There are calcified phleboliths in the pelvis. This makes differentiation with distal ureteral stones difficult. RAD/Abdomen Single View IMPRESSION: There are no acute findings. Electronically Signed: Lucas Dominguez MD at 21:07 EDT ,
[2022-03-17] MEDS: 0.9% Normal Saline 1,000 ML 100 ML IV ×2 (06:10→17:38)
[2022-03-17 06:24] LABS: Absolute Lymphocyte Count 1.77 X10^3/uL (0.83-4.51); Absolute Neutrophil Count 5.2 X10^3/uL (2.0-7.7); Basophil# 0.03 X10^3/uL; Basophil% 0.4 % (0-1); Eosinophil# 0.18 X10^3/uL; Eosinophils% 2.2 % (0-5); Hematocrit 39.2 % (40-54); Hemoglobin 13.1 g/dL (13.0-16.5); Lymphocyte # 1.77 X10^3/ul (0.83-4.51); Lymphocyte % 21.3 % (19-41); Mean Corp Hgb Conc 33.4 g/dL (32-36); Mean Corpuscular Hgb 28.2 pg (27.0-32.0); Mean Corpuscular Volume 84.5 fL (80-94); Mean Platelet Vol. 9.5 fl (6.2-12.0); Monocyte# 1.07 X10^3/uL; Monocyte% 12.9 % (0-10); NRBC Flagged by Analyzer 0 % (0-5); Neutrophil # 5.23 X10^3/uL (2.7-7.7); Neutrophil % 62.8 % (47-70); Platelet Count 159 K/mm3 (150-450); RBC Distribution Width CV 14.2 % (11.6-14.6); RBC Distribution Width SD 43.8 fl (35.1-43.9); Red Blood Count 4.64 M/mm3 (4.6-6.2); White Blood Count 8.3 K/mm3 (4.4-11.0)
[2022-03-17 06:48] LABS: Anion Gap 4 (5-15); BUN 28 mg/dL (7-18); BUN/Creat Ratio 16.8 RATIO (10-20); Calcium,Total 8.8 mg/dL (8.5-10.1); Chloride 107 mmol/L (98-107); Creatinine, Serum 1.67 mg/dL (0.70-1.30); EST Glomerular Filtration Rate 43 mL/min (>60); Est Glom Filt Rate - Afr Amer 52 mL/min (>60); Estimated Creatinine Clearance 36.61 ml/min; Glucose 91 mg/dL (74-106); Potassium 3.6 mmol/L (3.5-5.1); Sodium Level 140 mmol/L (136-145)
--- NOTE | 2022-03-17 07:39 | HP.PCM_ITS ---
HPI - General General Date of Admission: 03/17/22 HPI Narrative RANDY FIGUEROA, is a 71 M who presents To the hospital with a 9 mm stone in the proximal right ureter. The patient was having severe pain and requested admission for pain control. Pain is not better this morning we will plan to place a stent tomorrow and surgery and then send him home and set him up for outpatient shockwave lithotripsy. [facility] Medical History Arthritis Cancer CPAP (continuous positive airway pressure) dependence Eczema Essential hypertension Gastric reflux History of edema Hyperlipidemia Kidney stones GERSON on CPAP Osteoarthritis Psoriasis Wears glasses Home Medications amlodipine 5 mg tablet 5 mg PO DAILY Check with primary doctor 08/27/21 [History Last Taken 01/12/22 04:00] triamterene 50 mg capsule 50 mg PO DAILY Check with primary doctor 08/27/21 [History Last Taken Unknown] atenolol 50 mg tablet 25 mg PO DAILY Check with primary doctor 01/07/22 [History Last Taken 01/12/22 04:00] pantoprazole 40 mg tablet,delayed release 40 mg PO QODAY Check with primary doctor 01/07/22 [History Last Taken 01/12/22 04:00] pravastatin 40 mg tablet 20 mg PO QHS Check with primary doctor 01/07/22 [History Last Taken Unknown] meloxicam 15 mg tablet 15 mg PO DAILY Check with primary doctor 03/17/22 [History Last Taken Unknown] Allergy/AdvReac Type Severity Reaction Status Date / Time Penicillins [PCN] Allergy Hives Verified 01/12/22 06:11 JOY Inhibitors AdvReac Severe Other Verified 01/12/22 08:00 erythromycin base AdvReac Nausea/Vom/ Verified 01/12/22 06:11 Diarrhea Family History Father Heart disease Mother Hypertension Grandfather Cancer Grandmother Cancer Grandfather Diabetes Hypertension Brother , 2007 Cancer brain Surgical History Hx of knee surgery Hx of total knee replacement Social History Smoking Status: Never smoker alcohol intake: current substance use type: does not use caffeine: Yes Vital Signs Vital Signs Vital Signs: 03/16/22 23:57 03/17/22 04:11 03/17/22 04:14 Temperature 98.1 F 97.6 F L 97.6 F L Temperature Source Temporal Temporal Temporal Pulse Rate 74 61 61 Respiratory Rate 15 16 16 Respiratory Effort Respiratory Depth Respiratory Pattern Blood Pressure 179/93 H 147/82 H 147/82 H Blood Pressure Mean 121 103 103 Pulse Ox 96 93 93 Oxygen Delivery Method Room Air Room Air Room Air 03/17/22 05:19 03/17/22 05:51 Temperature 97.9 F Temperature Source Oral Pulse Rate 60 Respiratory Rate 18 Respiratory Effort Normal Non-Labored Respiratory Depth Normal Respiratory Pattern Normal Blood Pressure 152/81 H Blood Pressure Mean 104 Pulse Ox 93 Oxygen Delivery Method Room Air Room Air Weight Weight: 94.7 kg Body Mass Index (BMI) 33.7 Physical Exam Const alert and oriented x3 General Appearance: cooperative HEENT normocephalic, head/scalp atraumatic, EAC's normal and TM's normal bilaterally Eyes PERRL and EOMs intact bilaterally Pupil: sluggish Neck no lymphadenopathy, supple and no JVD General: trachea midline Lymph Lymphatic: no lymphadenopathy noted, lymphedema and lymphadenopathy Resp normal respiratory effort, normal air movement and clear to auscultation bilaterally Cardio regular rate, regular rhythm and peripheral pulses 2+ throughout GI soft to palpation, non-tender and non-distended Extremity normal capillary refill and no clubbing, cyanosis or edema General Extremity: no tenderness to palpation of joints or extremities Skin no rashes or lesions noted General Skin Exam: turgor normal Lesions: no lesions Rashes: no rashes Neuro CN's II-XII intact bilaterally Speech: speech normal Motor Exam: strength 5/5 throughout; Negative for general weakness Psych thought process normal, cooperative and affect normal Appearance: appropriate Results Lab / Micro Data Result Diagrams: 03/17/22 05:45 03/17/22 05:45 Labs: Laboratory Results - last 24 hr 03/17/22 00:52: WBC 9.7, RBC 4.97, Hgb 14.0, Hct 41.3, MCV 83.1, MCH 28.2, MCHC 33.9, RDW Std Deviation 42.7, RDW Coeff of Lisa 14.2, Plt Count 177, MPV 9.2, Immature Gran % (Auto) 0.400, Neut % (Auto) 67.1, Lymph % (Auto) 19.5, Eddy % (Auto) 10.7 H, Eos % (Auto) 1.8, Baso % (Auto) 0.5, Absolute Neuts (auto) 6.5, Absolute Lymphs (auto) 1.88, Nucleated RBC % 0 03/17/22 00:52: Sodium 138, Potassium 3.6, Chloride 105, Carbon Dioxide 28.0, Anion Gap 5, BUN 29 H, Creatinine 1.85 H, Estim Creat Clear Calc 31.86, Est GFR (MDRD) Af Amer 47 L, Est GFR (MDRD) Non-Af 38 L, BUN/Creatinine Ratio 15.7, Glucose 103, Calcium 9.3, Total Bilirubin 0.60, AST 30, ALT 28, Alkaline Phosphatase 92, Total Protein 8.3 H, Albumin 4.0, Globulin 4.3 H, Albumin/Globul in Ratio 0.9 03/17/22 00:52: Urine Color Yellow, Urine Clarity Clear, Urine pH 7.0, Ur Specific [place] 1.010, Urine Protein 30 H, Urine Glucose (UA) Normal, Urine Ketones Negative, Urine Occult Blood 10 H, Urine Nitrite Negative, Urine Bilirubin Negative, Urine Urobilinogen Normal, Ur Leukocyte Esterase Negative, Urine RBC 0 SEEN, Urine WBC 0 SEEN, Ur Squamous Epith Cells 0 SEEN, Urine Bacteria 0 SEEN, Urine Mucus 0 SEEN 03/17/22 05:45: WBC 8.3, RBC 4.64, Hgb 13.1, Hct 39.2 L, MCV 84.5, MCH 28.2, MCHC 33.4, RDW Std Deviation 43.8, RDW Coeff of Lisa 14.2, Plt Count 159, MPV 9.5, Immature Gran % (Auto) 0.400, Neut % (Auto) 62.8, Lymph % (Auto) 21.3, Eddy % (Auto) 12.9 H, Eos % (Auto) 2.2, Baso % (Auto) 0.4, Absolute Neuts (auto) 5.2, Absolute Lymphs (auto) 1.77, Nucleated RBC % 0 03/17/22 05:45: Sodium 140, Potassium 3.6, Chloride 107, Carbon Dioxide 29.0, Anion Gap 4 L, BUN 28 H, Creatinine 1.67 H, Estim Creat Clear Calc 36.61, Est GFR (MDRD) Af Amer 52 L, Est GFR (MDRD) Non-Af 43 L, BUN/Creatinine Ratio 16.8, Glucose 91, Calcium 8.8 Radiology Impression Abdomen/Pelvis CT 03/17/22 00:20 IMPRESSION: There is 9 mm stone in the proximal right ureter with resultant mild right hydronephrosis. Electronically Signed: Neymar Pagan MD at 1:13 EDT , Assessment & Plan Assessment/Plan (1) Acute flank pain: PLAN: Plan Admitted for kidney stone plan to place a stent tomorrow and surgery will add onto the schedule n.p.o. at midnight
--- NOTE | 2022-03-17 07:43 | DCINST_ITS ---
Discharge Instructions Diet Discharge Diet: No restrictions Dressing / Incision Call your doctor if your incision/area has: Continuous Slow Oozing, Increased Pain/ Swelling, Increased Redness and Foul Smelling Discharge Call your doctor if you observe: Fever of 101 or Higher, Numbness or Tingling, Shortness of breath, Dizziness, Calf discomfort and Uncontrolled pain Follow Up Care Please Follow Up With: José Vasquez MD Test Results: Test results from this visit will be discussed in further detail at your follow- up appointment, if applicable. Discharge Plan Admission Admit Date/Time: 03/17/22 03:21 Primary Reason for Your Visit: kidney stone Attending Provider: José Vasquez Primary Care Provider: Wei Moreno Discharge Orders/Prescriptions Prescriptions: New ciprofloxacin HCl [Cipro] 500 mg tablet 500 mg PO BID Qty: 6 0RF oxycodone-acetaminophen 5-325 mg tablet 1 tab PO Q6H PRN (Reason: pain) 7 Days Qty: 14 0RF Continued amlodipine 5 mg tablet 5 mg PO DAILY Label Comments: TAKE 1 TABLET BY MOUTH DAILY triamterene 50 mg capsule 50 mg PO DAILY Label Comments: TAKE 1 CAPSULE BY MOUTH EVERY DAY atenolol 50 mg tablet 25 mg PO DAILY Label Comments: TAKE 1 TABLET BY MOUTH EVERY DAY pantoprazole 40 mg tablet,delayed release (DR/EC) 40 mg PO QODAY Label Comments: TAKE 1 TABLET BY MOUTH EVERY OTHER DAY pravastatin 40 mg tablet 20 mg PO QHS meloxicam 15 mg tablet 15 mg PO DAILY Label Comments: TAKE 1 TABLET BY MOUTH EVERY DAY Referrals / Follow Up: José Vasquez MD [Med Staff - Active Staff] - Wei Moreno MD [Primary Care Provider] -
[2022-03-17] MEDS: Atenolol 25 MG Tablet PO (08:51)
[2022-03-17] MEDS: Ciprofloxacin 500 MG Tablet PO ×2 (08:51→21:20)
[2022-03-17] MEDS: Meloxicam 15 MG Tablet PO (08:51)
[2022-03-17] MEDS: Pantoprazole Sodium 40 MG Tablet PO (08:51)
[2022-03-17] MEDS: amLODIPine 5 MG Tablet PO (08:51)
--- NOTE | 2022-03-17 11:16 | CASEMGMT ---
ADRIANA HOOKS Assessment: Face to Face with pt for initial transition planning/care coordination assessment. ADRIANA HOOKS introduced self and role at [facility], pt voices understanding and consents to assessment. Pt is A/O x4 and answers all questions appropriately at this time. Pt in room, walking around and then sitting on bed. Care providers, pharmacy, and demographics verified/updated. Admitting Dx: Kidney Stone. PCP: Josh. Specialists: Christina, Urology; Ashley, Cardio; Alonso, Dermatology, Knapic, Ortho, Sibilia, Pulmonolgy. Preferred [facility]acy: [facility]. Insurance: [facility]. Prescription Benefit: yes. LW/HPOA: Pt reports being POA. Not on file. Advised Pt can bring in a copy of LW/POA to keep on file. LNOK: Bettina Taylor, . Living Arrangements: Pt lives with in a one story home. There are two steps to get into the home with rails. Pt denies any issues in using the steps. Pt reports being I in ADLs. Transportation: Pt drives self but is able to drive to medical appointments if needed. DME/HHC/SNF: Pt reports having a walker, cane, shower chair, and grab bars but denies needed to use the DME currently. Pt has a CPAP with supplies but denies oxygen. Pt denies HHC including therapy currently or in the past. Pt denies any SNF stays. Pt states no concerns with going home at time of dc. Pt states no further concerns/needs. CM to follow. Advised pt to ask CM if any further question/concerns/needs arise, voices understanding. Pt Goal: Home. Plan: Home.
[2022-03-17] MEDS: Morphine 2 MG/ML Syringe IV ×2 (15:04→21:19)
[2022-03-17] MEDS: 0.9% Saline Lock 10 ML Syringe IV (21:19)
[2022-03-17] MEDS: Pravastatin 20 MG Tablet PO (21:20)
[2022-03-18] VITALS (9 sets, daily range): BP systolic 122–151; BP diastolic 70–82; PULSE 52–72; RESP 16–20; TEMP 36.5–37.1; O2SAT 87–98; BMI 33.5
[2022-03-18] MEDS: 0.9% Normal Saline 1,000 ML 100 ML IV (02:38)
[2022-03-18] MEDS: 0.9% Saline Lock 10 ML Syringe IV ×2 (02:44→05:39)
[2022-03-18] MEDS: Morphine 2 MG/ML Syringe IV ×2 (02:45→05:39)
--- NOTE | 2022-03-18 03:02 | NURSING ---
O2 2L NC PLACED (PT USUALLY WEARS CPAP @ HS)
[2022-03-18] MEDS: Ondansetron 4 MG/2 ML Vial IV (07:37)
[2022-03-18] MEDS: Ciprofloxacin 500 MG Tablet PO (07:41)
[2022-03-18] MEDS: Atenolol 25 MG Tablet PO (07:42)
[2022-03-18] MEDS: amLODIPine 5 MG Tablet PO (07:42)
[2022-03-18] MEDS: Lactated Ringers 1,000 ML 15 ML IV (08:35)
--- NOTE | 2022-03-18 10:03 | NURSING ---
Pt off floor for surgery
--- NOTE | 2022-03-18 11:05 | PCM.PN.GU ---
Subjective Subjective Plan to proceed with cystoscopy right stent placement today and whether bring him back when the shockwave machine is available for treatment of a stone patient understands but he did not have a lot of severe pain so organ to place a stent to control his pain and then bring him back for outpatient shockwave lithotripsy. Objective Data Objective Data Vital Signs: Vital Signs Temp Pulse Resp BP Pulse Ox O2 Del Method 98.2 F 72 16 145/78 H 98 Room Air 03/18/22 09:51 03/18/22 09:51 03/18/22 09:51 03/18/22 09:51 03/18/22 09:51 03/18/22 09:51 Oxygen Delivery Method Room Air Weight: 94.4 kg Body Mass Index (BMI) 33.5 Intake & Output: Intake and Output for Last 24 Hours 03/16/22 03/17/22 03/18/22 23:59 23:59 23:59 Intake Total 2000 / 2400 1300 / 1300 Output Total 775 / 775 Balance 1999 / 0 525 / 525 Lab / Micro Data Result Diagrams: 03/17/22 05:45 03/17/22 05:45 Radiography Diagnostic Testing: Radiology Impression KUB X-Ray 03/17/22 05:55 IMPRESSION: There are no acute findings. Electronically Signed: Lucas Dominguez MD at 21:07 EDT ,
--- NOTE | 2022-03-18 11:41 | OP.PCM_ITS ---
Report of Operation Date of Procedure: 03/18/22 Pre-Operative Diagnosis: Right ureteral calculi causing obstruction Post-Operative Diagnosis: The same Surgery/Procedure Performed:: Cystoscopy and right stent placement Description of Surgical Findings:: Patient was taken back to the operating room after induction of general anesthesia, the patient was placed in dorsolithotomy position. The urethra and genitals were prepped and draped in usual sterile fashion. Using a 21 [place]uran rigid cystourethroscope the entire length of the urethra was normal then went into the bladder. Identified the trigone the left and right ureteral orifice. I then cannulated the right orifice and advanced a wire up into the kidney. I then backloaded a 5 [place]uran open ended catheter over the wire and injected contrast to delineate the anatomy. After the retrograde was performed I then used fluoroscopic images and guidance to advanced a wire up into the kidney and over the 0.038 glidewire I advanced a 6 [place]uran by 26 cm double pigtail stent. I then pulled the 0.038 Glidewire off and the stent coiled in the kidney bladder good position. The bladder was then drained. We confirmed the position of the stent by fluoroscopy. Patient anesthetic was reversed and was taken back to the PACU in good condition. Surgeon: José Vasquez Type of Anesthesia: General Drains: stent right side Admit VTE Documentation VTE Present on Admission: No VTE Mechan Device Prophylaxis: SCD's VTE Pharm Prophylaxis ordered?: No
== END 2022-03-18 14:55 | disposition home or self-care (01) | DRG 661 ==
LOC: ED 03-17 01:06 → MS3 03-17 05:15
PROVIDERS: Admitting Provider Urology; Emergency Provider Emergency Medicine; PCP Family Medicine; Visit Provider Urology
PROC: 0T768DZ Dilation of Right Ureter with Intraluminal Device, Via Natural or Artificial Opening Endoscopic (ICD-10-PCS; CPT 52332; principal; 2022-03-18 16:50)
DX: N20.1 Calculus of ureter (principal); E78.5 Hyperlipidemia, unspecified; I10 Essential (primary) hypertension; G47.33 Obstructive sleep apnea (adult) (pediatric); Z99.89 Dependence on other enabling machines and devices; Z87.442 Personal history of urinary calculi
CPT/HCPCS: 36415; 74018; 74176; 76000; 80048; 80053; 81001; 85025; 97802; 99284; J7030; J7120; A4216; C1769; C2617; J2405

== ENCOUNTER → 2022-03-25 | Outpatient (CLI) | payer MEDICARE, SELFPAY ==
--- NOTE | 2022-03-25 09:33 | ECHOCS_ITS ---
Reason For Study: Abnormal EKG Procedure This was a 2D Doppler, Color Flow transthoracic echocardiogram. The study was technically difficult. Contrast injection was performed. Exam performed in department. Left Ventricle Normal LV size. Left ventricular systolic function is normal. The estimated ejection fraction is 60 %. Stage 1 diastolic dysfunction. No regional wall motion abnormalities noted. Right Ventricle Normal RV size. Normal systolic function. Atria Normal left atrium. Normal right atrium. Mitral Valve Mitral valve not well visualized. Tricuspid Valve The tricuspid valve is not well visualized. Aortic Valve The aortic valve is not well visualized. Pulmonic Valve Normal pulmonic valve. Great Vessels Normal aortic root. The pulmonary artery is normal size. Normal inferior vena cava. Pericardium/Pleural No pericardial effusion. Medication 20 gauge I.V. with prn adaptor inserted into right arm. Diluted definity 2ml given slow IV push to enhance endocardial definition. MMode/2D Measurements & Calculations LVIDd: 4.6 cm IVSd: 1.3 cm Ao root diam: 3.7 cm LVIDs: 2.8 cm LVPWd: 1.3 cm LA dimension: 4.3 cm RVDd: 2.8 cm FS: 37.9 % LAV(MOD-bp): 44.7 ml LA A4 area: 12.8 cm2 RA A4 area: 11.8 cm2 LAV(MOD-bp) Indexed: 22.2 ml/m2 LAV(MOD-sp2): 57.6 ml LAV(MOD-sp4): 29.2 ml Time Measurements MV dec time: 0.26 sec Doppler Measurements & Calculations MV E max leodan: 52.9 cm/sec Lat Peak E' Leodan: 7.9 cm/sec Med Peak E' Leodan: 5.0 cm/sec MV A max leodan: 80.0 cm/sec E/E' lat: 6.7 E/E' med: 10.6 MV E/A: 0.66 MV V2 max: 82.6 cm/sec MV P1/2t max leodan: 46.9 cm/sec Ao V2 max: 109.2 cm/sec MV max P.7 mmHg MV P1/2t: 66.7 msec Ao max P.8 mmHg MV V2 mean: 34.9 cm/sec MV dec slope: 206.1 cm/sec2 Ao V2 mean: 78.3 cm/sec MV mean P.62 mmHg Ao mean P.7 mmHg MV V2 VTI: 22.1 cm MVA(P1/2t): 3.3 cm2 Ao V2 VTI: 27.6 cm LV V1 max: 107.1 cm/sec PA V2 max: 120.3 cm/sec LV V1 max P.6 mmHg LV V1 mean P.2 mmHg LV V1 mean: 69.6 cm/sec LV V1 VTI: 25.0 cm ECHO/Echo Complete W/ Contrast Interpretation Summary Normal LV size. Left ventricular systolic function is normal. The estimated ejection fraction is 60 %. Stage 1 diastolic dysfunction. Contrast injection was performed. The study was technically difficult. Ordering Physician: Yunier Ramirez Referring Physician: Wei Moreno Performed By: Ian Wilkes RCS
== END | disposition home or self-care (01) ==
LOC: CVS 09:32
PROVIDERS: PCP Family Medicine; Referring Provider Internal Medicine Cardiovascular Disease; Visit Provider Internal Medicine Cardiovascular Disease
DX: Z01.810 Encounter for preprocedural cardiovascular examination (principal)
CPT/HCPCS: 93306; Q9957; A4216; C8929

== ENCOUNTER 2022-04-08 11:16 | Day surgery (SDC) | payer MEDICARE, SELFPAY ==
[2022-04-08] VITALS (7 sets, daily range): BP systolic 125–154; BP diastolic 75–88; PULSE 58–75; RESP 16; TEMP 36.2–36.6; O2SAT 92–97; BMI 33.4
--- NOTE | 2022-04-08 07:34 | PCM.HP.STD ---
HPI - General General Chief Complaint: Right kidney stone status post stent HPI Narrative RANDY FIGUEROA, is a 71 M who presents right extracorporeal shockwave lithotripsy. [facility] Medical History (Updated 04/01/22 @ 14:48 by Cuca Marquez) Arthritis Cancer Cardiology follow-up encounter CPAP (continuous positive airway pressure) dependence Eczema Essential hypertension Gastric reflux GERD (gastroesophageal reflux disease) Gout High cholesterol History of echocardiogram History of edema History of stress test Hyperlipidemia Kidney stones Leg cramps Non-smoker GERSON on CPAP Osteoarthritis Psoriasis Sleep apnea Wears glasses Home Medications amlodipine 5 mg tablet 5 mg PO DAILY Check with primary doctor 08/27/21 [History Last Taken 01/12/22 04:00] triamterene 50 mg capsule 50 mg PO DAILY Check with primary doctor 08/27/21 [History Last Taken Unknown] atenolol 50 mg tablet 25 mg PO DAILY Check with primary doctor 01/07/22 [History Last Taken 01/12/22 04:00] pantoprazole 40 mg tablet,delayed release 40 mg PO QODAY Check with primary doctor 01/07/22 [History Last Taken 01/12/22 04:00] pravastatin 40 mg tablet 20 mg PO QHS Check with primary doctor 01/07/22 [History Last Taken Unknown] Allergy/AdvReac Type Severity Reaction Status Date / Time Penicillins [PCN] Allergy Hives Verified 04/01/22 14:32 JOY Inhibitors AdvReac Severe Other Verified 04/01/22 14:32 erythromycin base AdvReac Nausea/Vom/ Verified 04/01/22 14:32 Diarrhea Family History Father Heart disease Mother Hypertension Grandfather Cancer Grandmother Cancer Grandfather Diabetes Hypertension Brother , 2007 Cancer brain Surgical History Hx of knee surgery Hx of total knee replacement Social History Smoking Status: Never smoker alcohol intake: current substance use type: does not use caffeine: Yes Vital Signs Vital Signs Vital Signs: Weight Weight: 92.986 kg
--- NOTE | 2022-04-08 11:21 | RAD_ITS ---
STUDY: X-RAY - ABDOMEN/PELVIS REASON FOR EXAM: Male, 71 years old. Preoperative evaluation. TECHNIQUE: Single AP view of the abdomen / pelvis on 2 images. COMPARISON: March 17, 2022. FINDINGS: Interval placement of right ureteral stent with no complicating features. There is an unremarkable bowel gas pattern. There is no demonstrated free abdominal air. Stable calcification projected over the upper pole of the right kidney. Vascular calcification and vas deferens calcification unchanged. Normal visualized osseous structures. RAD/Abdomen Single View IMPRESSION: Stable right nephrocalcinosis. Placement of right ureteral stent without complications. Electronically Signed: John Balderrama, at 12:28 EST ,
[2022-04-08] MEDS: Lactated Ringers 1,000 ML 15 ML IV (12:06)
[2022-04-08] MEDS: Cefazolin 2 GM in 0.9% Normal Saline 100 ML IV (13:26)
--- NOTE | 2022-04-08 13:44 | PCM.DC ---
Discharge Instructions Diet Discharge Diet: No restrictions, Light diet - advance as tolerated and Soft diet Activity Discharge Activity: Return to Normal Activity Follow Up Care Please Follow Up With: José Vasquez MD When: call for appt next week to remove stent Test Results: Test results from this visit will be discussed in further detail at your follow-up appointment, if applicable. Discharge Plan Admission Primary Reason for Your Visit: Right ESWL Attending Provider: José Vasquez Primary Care Provider: Wei Moreno Discharge Orders/Prescriptions Prescriptions: Continued amlodipine 5 mg tablet 5 mg PO DAILY Label Comments: TAKE 1 TABLET BY MOUTH DAILY triamterene 50 mg capsule 50 mg PO DAILY Label Comments: TAKE 1 CAPSULE BY MOUTH EVERY DAY atenolol 50 mg tablet 25 mg PO DAILY Label Comments: TAKE 1 TABLET BY MOUTH EVERY DAY pantoprazole 40 mg tablet,delayed release (DR/EC) 40 mg PO QODAY Label Comments: TAKE 1 TABLET BY MOUTH EVERY OTHER DAY pravastatin 40 mg tablet 20 mg PO QHS Referrals / Follow Up: José Vasquez MD [Med Staff - Active Staff] - Wei Moreno MD [Primary Care Provider] - Disposition Disposition (needs filled in before D/C Order can be placed): Home, Self Care
--- NOTE | 2022-04-08 13:47 | OP.PCM_ITS ---
Report of Operation Date of Procedure: 04/08/22 Pre-Operative Diagnosis: Right kidney stone Post-Operative Diagnosis: Same Surgery/Procedure Performed:: Right extracorporeal shockwave lithotripsy Description of Surgical Findings:: Patient presents to the hospital for treatment of a kidney stone with shockwave lithotripsy. In the preoperative area and x-ray was done to confirm the location of the stone. The x-ray was reviewed and the stone location was reviewed. In the preoperative setting I spoke with the patient regarding the treatment of the stone how the treatment would be conducted and the expectations after surgery. The patient understands there is a risk of bleeding and infection. Also discussed the very rare risk of hematoma or damage to the kidney. We also discussed the risk that the shockwave machine will fail to jazmine ak the stone adequately and that the patient may need other surgical procedures. We also discussed the possibility that the patient may need a stent after the procedure. After reviewing the procedure with the patient, the patient is signed the consent form all the patient's questions were addressed and was taken back to the operating room for treatment of a kidney stone. Patient was taken back to the operating room, patient was identified by the nursing staff, we identified the side of the treatment and the patient side of treatment had been marked by my initials. The patient underwent general anesthetic and was placed supine on the lithotripter table. We then used fluoroscopy to identify the stone on the Right side next to the stent, stone had moved the the rigt renal pelvis. We then positioned the patient under the lithotripter and we used triangulation technique to identify the location of the stone and then we made sure that the stone was engaged in the F2 focal point of F2 Donier lithoprior machine. Once the patient was positioned appropriately and the stone was identified and placed in the F2 focal point of the lithotripter machine we then proceeded with shockwave lithotripsy. In the beginning the shockwave was delivered at a rate of 90 shocks per minute, we monitor the EKG for any ectopy. The power was slowly increased to 5 kV and subsequently at the 7 kV. We then proceeded with the treatment we move the therapy had around during the treatment to make sure the stone stayed in the F2 focal point during the entire treatment and after 3000 shockwaves were delivered to the stone under fluoroscopic guidance the treatment was completed. The patient was given instructions to call the office to make an a follow-up appointment with an xray to evaluate the success of the treatment, pateint understands that its possible the stones may need another procedure.At this point the patient's anesthetic was reversed patient was extubated and taken back to the PACU in stable condition. Surgeon: José Vasquez Type of Anesthesia: General Drains: stent in place Admit VTE Documentation VTE Present on Admission: No VTE Mechan Device Prophylaxis: SCD's VTE Pharm Prophylaxis ordered?: No
[2022-04-08] MEDS: Lactated Ringers 1,000 ML 100 ML IV (14:26)
== END 2022-04-08 16:16 | disposition home or self-care (01) ==
LOC: SDC 11:17 → AC 11:18
PROVIDERS: PCP Family Medicine; Referring Provider Urology; Visit Provider Urology
PROC: (CPT 50590; principal; 2022-04-08 13:20)
DX: N20.0 Calculus of kidney (principal); E78.00 Pure hypercholesterolemia, unspecified; I10 Essential (primary) hypertension; Z79.2 Long term (current) use of antibiotics; G47.33 Obstructive sleep apnea (adult) (pediatric); Z99.89 Dependence on other enabling machines and devices
CPT/HCPCS: 50590; 74018; J7120; J2405

== ENCOUNTER → 2022-09-08 | Outpatient (CLI) | payer MEDICARE, SELFPAY ==
[2022-09-08 13:33] LABS: ALB/GLOB Ratio 0.9 RATIO (0.9-2.4); AST(SGOT) 38 U/L (15-37); Alanine Aminotransfer ALT/SGPT 50 U/L (16-61); Albumin, Serum 3.8 g/dL (3.2-5.0); Alkaline Phosphatase 91 U/L (45-117); Anion Gap 1 (5-15); BUN 20 mg/dL (7-18); BUN/Creat Ratio 19.2 RATIO (10-20); Calcium,Total 9.5 mg/dL (8.5-10.1); Chloride 108 mmol/L (98-107); Cholesterol 124 mg/dL (200); Creatinine, Serum 1.04 mg/dL (0.70-1.30); EST Glomerular Filtration Rate 75 mL/min (>60); Est Glom Filt Rate - Afr Amer 90 mL/min (>60); Globulin 4.1 g/dL (2.2-4.2); Glucose 90 mg/dL (74-106); High Density Lipoprotein 33 mg/dL; Potassium 4.1 mmol/L (3.5-5.1); Protein, Total 7.9 g/dL (6.4-8.2); Sodium Level 139 mmol/L (136-145); Triglycerides 207 mg/dL; Very Low Density Lipoprotein 41 mg/dL (5-40)
== END | disposition home or self-care (01) ==
DX: E78.5 Hyperlipidemia, unspecified (principal); I10 Essential (primary) hypertension; Z87.442 Personal history of urinary calculi
CPT/HCPCS: 36415; 80053; 80061

== ENCOUNTER → 2023-03-09 | Outpatient (CLI) | payer MEDICARE, SELFPAY ==
[2023-03-09 12:35] LABS: Absolute Lymphocyte Count 1.74 X10^3/uL (0.83-4.51); Basophil# 0.05 X10^3/uL; Basophil% 0.9 % (0-1); Eosinophil# 0.16 X10^3/uL; Eosinophils% 2.8 % (0-5); Hematocrit 48.3 % (40-54); Lymphocyte # 1.74 X10^3/ul (0.83-4.51); Lymphocyte % 30.7 % (19-41); Mean Corp Hgb Conc 33.1 g/dL (32-36); Mean Corpuscular Volume 87.5 fL (80-94); Mean Platelet Vol. 9.3 fl (6.2-12.0); Monocyte# 0.67 X10^3/uL; Monocyte% 11.8 % (0-10); NRBC Flagged by Analyzer 0 % (0-5); Neutrophil # 3.04 X10^3/uL (2.7-7.7); Neutrophil % 53.6 % (47-70); Platelet Count 202 K/mm3 (150-450); RBC Distribution Width CV 13.4 % (11.6-14.6); RBC Distribution Width SD 42.5 fl (35.1-43.9); Red Blood Count 5.52 M/mm3 (4.6-6.2); White Blood Count 5.7 K/mm3 (4.4-11.0)
[2023-03-09 13:03] LABS: Vitamin B12 358 pg/mL (211-911); Vitamin D,25 Hydroxy 19.6 ng/mL
[2023-03-09 13:26] LABS: ALB/GLOB Ratio 0.9 RATIO (0.9-2.4); AST(SGOT) 34 U/L (15-37); Alanine Aminotransfer ALT/SGPT 44 U/L (16-61); Albumin, Serum 3.9 g/dL (3.2-5.0); Alkaline Phosphatase 89 U/L (45-117); Anion Gap 5 (5-15); BUN 18 mg/dL (7-18); BUN/Creat Ratio 20.5 RATIO (10-20); Calcium,Total 9.1 mg/dL (8.5-10.1); Chloride 105 mmol/L (98-107); Creatinine, Serum 0.88 mg/dL (0.70-1.30); EST Glomerular Filtration Rate 91 mL/min (>60); Est Glom Filt Rate - Afr Amer 110 mL/min (>60); Ferritin 271 ng/mL (26-388); Globulin 4.3 g/dL (2.2-4.2); Glucose 75 mg/dL (74-106); Iron 109 ug/dL (65-175); Potassium 3.6 mmol/L (3.5-5.1); Protein, Total 8.2 g/dL (6.4-8.2); Sodium Level 138 mmol/L (136-145)
== END | disposition home or self-care (01) ==
LOC: BFHLAB 10:38
PROVIDERS: PCP Nurse Practitioner Family; Visit Provider Nurse Practitioner Family
DX: I10 Essential (primary) hypertension (principal); E61.1 Iron deficiency; E55.9 Vitamin D deficiency, unspecified; E53.8 Deficiency of other specified B group vitamins; R94.6 Abnormal results of thyroid function studies
CPT/HCPCS: 36415; 80053; 82306; 82607; 82728; 83540; 84443; 85025

== ENCOUNTER → 2023-07-19 | Outpatient (CLI) | payer MEDICARE, SELFPAY ==
--- NOTE | 2023-07-19 11:05 | RAD_ITS ---
STUDY: X-RAY - ABDOMEN/PELVIS REASON FOR EXAM: Male, 73 years old. CALCULUS OF KIDNEY TECHNIQUE: Two AP supine views of the abdomen and pelvis. COMPARISON: None. FINDINGS: Normal visualized lung bases. There is a moderate amount of colonic fecal material. There is no demonstrated free abdominal air. The visualized liver, spleen and kidneys are grossly normal in size and morphology. Normal soft tissue structures. There are diffuse degenerative changes of the visualized lumbar spine. No suspicious calcifications noted over either renal shadow or along the expected course of either ureter. However, one could be obscured by overlying bowel gas and stool RAD/Abdomen Single View IMPRESSION: No acute findings, retained stool Electronically Signed: Robel Howell MD at 9:35 EST ,
[2023-07-19 12:03] LABS: PSA,Total - Annual Screen 1.19 ng/mL (0.00-4.00)
--- OUTSIDE RECORDS SUMMARY | 2023-07-19 17:44 | XMS RPT_ITS | CCD ---
Author Name Unknown Address Formerly [facility] [address] [place] [address] Organization [facility] Care Team Providers Care Carroting Machine Offbearer Name Role Phone Andre ROUSE, Gwen Primary Care Provider SVEN PAINTING II, SCOTT ANDREW Primary Care Unavailable Allergies Allergy Classification Reported Allergen(s) Allergy Type Date of Onset Reaction(s) Facility (3 sources) Angiotensin-conv erting enzyme inhibitor agent; Translations: [JOY INHIBITORS] Drug Intolerance 9 Cough [facility] (3 sources) Erythromycin; Translations: [ERYTHROMYCIN] Drug Allergy 0 GI Upset [facility] (3 sources) Penicillins; Translations: [PENICILLINS] Drug Allergy 9 Hives [facility] Medications Completed/Discontinued Medications Medication Drug Class(es) Dates Sig (Normalized) Sig (Original) acetaminophen 325 mg oral capsule (2 sources) acetaminophen (T YLENOL) 325 mg cap Take by mouth. 0 Active Problems Active Problems Problem Classification Problem Date Documented Date Episodic/Chronic Blindness and vision defects (9 sources) Bilateral myopia of eyes; Translations: [Myopia, bilateral] Onset: 04-21-2016 12-17-2022 Episodic Cataract (3 sources) Bilateral senile combined form cataracts of eyes; Translations: [Combined forms of age-related cataract, bilateral] Onset: 11-23-2017 12-17-2022 Chronic Glaucoma (2 sources) Preglaucoma, unspecified, right eye; Translations: [Preglaucoma, unspecified] 12-17-2022 Chronic Inflammation; infection of eye (except that caused by tuberculosis or sexually transmitteddisease) (1 source) Allergic conjunctivitis of bilateral eyes; Translations: [Acute atopic conjunctivitis, bilateral] 07-27-2023 Episodic Other eye disorders (1 source) 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; Translations: [Hemorrhage in optic nerve sheath, right eye] 12-17-2022 Chronic Other eye disorders (3 sources) Asteroid hyalosis of right eye; Translations: [Crystalline deposits in vitreous body, right eye] Onset: 04-21-2016 12-17-2022 Chronic Other eye disorders (2 sources) Bilateral vitreous floaters; Translations: [Other vitreous opacities, bilateral] Onset: 11-23-2017 11-23-2017 Chronic Other eye disorders (3 sources) Iris atrophy (essential) (progressive), bilateral; Translations: [Other iris atrophy] Onset: 06-01-2019 12-17-2022 Episodic Other eye disorders (1 source) Dermatochalasis of right upper eyelid; Translations: [Dermatochalasis] 12-17-2022 Episodic Other eye disorders (1 source) Mechanical ectropion of left lower eyelid; Translations: [Mechanical ectropion] 12-17-2022 Episodic Retinal detachments; defects; vascular occlusion; and retinopathy (2 sources) Disorder of macula of retina; Translations: [Unspecified retinal disorder] Onset: 01-23-2014 01-23-2014 Chronic Past or Other Problems Problem Classification Problem Date Documented Da te Episodic/Chronic Allergic reactions (4 sources) Contact dermatitis; Translations: [Unspecified contact dermatitis, unspecified cause] Onset: 07-20-2008 07-20-2008 Episodic Other inflammatory condition of skin (4 sources) Seborrheic dermatitis; Translations: [Seborrheic dermatitis, unspecified] Onset: 07-20-2008 07-20-2008 Episodic Other inflammatory condition of skin (2 sources) Pruritus of skin; Translations: [Pruritus, unspecified] Onset: 07-20-2008 07-20-2008 Episodic Other inflammatory condition of skin (2 sources) Other specified erythematous conditions; Translations: [Other specified erythematous conditions] Onset: 07-20-2008 07-20-2008 Episodic Other injuries and conditions due to external causes (2 sources) Superficial injury; Translations: [Unspecified multiple injuries, initial encounter] Onset: 07-20-2008 07-20-2008 Episodic Other skin disorders (2 sources) Disorder of skin appendage; Translations: [Other hair color and hair shaft abnormalities] Onset: 07-20-2008 07-20-2008 Episodic Other skin disorders (2 sources) Disorder of sebaceous gland; Translations: [Other specified follicular disorders] Onset: 07-20-2008 07-20-2008 Episodic Skin and subcutaneous tissue infections (2 sources) Pyoderma; Translations: [Pyoderma] Onset: 07-17-2008 07-17-2008 Episodic Results Test Name Value Interpretation Reference Range Facil ity Encounters Encounter Date Encounter Type Care Provider Facility Start: 12-17-2022 End: 12-17-2022 Patient encounter procedure Sven Priscilla Effie OD Work Phone: Optometry Procedures Date Procedure Procedure Detail Performing Clinician Start: 12-17-2022 Computerized ophthal za imaging optic nerve Sven Priscilla Effie OD Work Phone: Plan of Treatment Date Care Activity Detail Author Start: 12-06-2024 VISUAL FIELD 24-2 OU (BOTH EYES) VISUAL FIELD 24-2 OU (BOTH EYES) OPHT Imaging Routine 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 Expected: 12/06/2024 [facility] Work Phone: Payers Date Payer Category Payer Medicare UHC MEDICARE UHC MEDICARE ADVANTAGE PPO [id number] 2019-Present [phone] [address] [address] [place] [address] PPO [id number] 2019 Medicare [id number] Social History Date Type Detail Facility Start: [facility]22 [facility] Start: 12-17-2022 Tobacco use and exposure Smoke less tobacco non-user [facility] Start: 12-17-2022 Alcohol intake Ex-drinker (finding) [facility] Start: 06-05-2021 End: 12-17-2022 History of Social function [facility] Start: 06-05-2021 End: 12-17-2022 Tobacco use panel [facility] National Score (1-10 0), lower number is lower risk 47 [facility] Start: 1950 Sex Assigned At Not on file [facility] Progress note 12-17-2022 Note Date & Type Note Facility 12-17-2022 Note HNO ID: [id number] Author: Sven Painting II, OD Service: ? Author Type: MARKET SALES MANAGER Type: Progress Notes Filed: 12/17/2022 3:37 PM Note Text: Testing for optic nerve hemorrhage [facility] Progress note 12-17-2022 Note Date & Type Note Facility 12-17-2022 Note HNO ID: [id number] Author: Sven Painting II, OD Service: ? 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 Well tolerated at this time. Discussed possible future affect on daily activities to watch for. Monitor as instructed. 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 Monitor yearly for Intraocular pressure changes. 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 Patient will return for undilated baseline threshold Visual field. Discussed need to monitor optic nerve health. 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 H10.13 Allergic conjunctivitis, bilateral Comment: L>R. Ocular allergies noted both eyes. Recommend use of OTC Pataday 0.7% 1 drop both eyes once daily x 3 weeks then as needed for relief of symptoms. Advise patient to immediately report worsening in status or additional symptoms. H02.831, H02.834 Dermatochalasis of both upper eyelids Comment: L>R with interference in pupil area noted. Patient will tolerate for now. Refer to Dr. Manning with needed. 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 Artificial tears daily. Topical treatment of ocular allergy above may improve comfort. Monitor. H52.13 Myopia of both eyes H52.223 Regular astigmatism of both eyes H52.4 Presbyopia Comment: Small shift in glasses power. Update glasses to maximize visual performance. I have confirmed and edited as necessary the relevant ophthalmic history, ROS, and the neuro exam findings as obtained by others. I have seen and examined Chucky Taylor. I have discussed the case and the management of this patient's care with the Resident/Fellow, if applicable. I also have reviewed and agree with the assessment and plan as stated above and agree with all of its relevant components. 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 Well tolerated at this time. Discussed possible future affect on daily activities to watch for. Monitor as instructed. 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 Monitor yearly for Intraocular pressure changes. 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 Patient will return for undilated baseline threshold Visual field. Discussed need to monitor optic nerve health. 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 H10.13 Allergic conjunctivitis, bilateral Comment: L>R. Ocular allergies noted both eyes. Recommend use of OTC Pataday 0.7% 1 drop both eyes once daily x 3 weeks then as needed for relief of symptoms. Advise patient to immediately report worsening in status or additional symptoms. H02.831, H02.834 Dermatochalasis of both upper eyelids Comment: L>R with interference in pupil area noted. Patient will tolerate for now. Refer to Dr. Manning with needed. 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 Artificial tears daily. Topical treatment of ocular allergy above may improve comfort. Monitor. H52.13 Myopia of both eyes H52.223 Regular astigmatism of both eyes H52.4 Presbyopia Comment: Small shift in glasses power. Update glasses to maximize visual performance. I have confirmed and edited as necessary the relevant ophthalmic history, ROS, and the neuro exam findings as obtained by others. I have seen and examined Chucky Taylor. I have discussed the case and the management of this patient's care with the Resident/Fellow, if applicable. I also have reviewed and agree with the assessment and plan as stated above and agree with all of its relevant components. 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 Well tolerated at this time. Discussed possible future affect on daily activities to watch for. Monitor as instructed. 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 Monitor yearly for Intraocular pressure changes. 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 Patient will return for undilated baseline threshold Visual field. Discussed need to monitor optic nerve health. 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 H10.13 Allergic conjunctivitis, bilateral Comment: L>R. Ocular allergies noted both eyes. Recommend use of OTC Pataday 0.7% 1 drop both eyes once daily x 3 weeks then as needed for relief of symptoms. Advise patient to immediately report worsening in status or additional symptoms. H02.831, H02.834 Dermatochalasis of both upper eyelids Comment: L>R with interference in pupil area noted. Patient will tolerate for now. Refer to Dr. Manning with needed. 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 Artificial tears daily. Topical treatment of ocular allergy above may improve comfort. Monitor. H52.13 Myopia of both eyes H52.223 Regular astigmatism of both eyes H52.4 Presbyopia Comment: Small shift in glasses power. Update glasses to maximize visual performance. I have confirmed and edited as necessary the relevant ophthalmic history, ROS, and the neuro exam findings as obtained by others. I have seen and examined Chucky Taylor. I have discussed the case and the management of this patient's care with the Resident/Fellow, if applicable. I also have reviewed and agree with the assessment and plan as stated above and agree with all of its relevant components. Sven Painting II, OD documented in this encounter [facility] History of Past illness Narrative 05-14-2016 Note Date & Type Note Facility documented as of this encounter (statuses as of 12/17/2022) [facility] History of Past illness Narrative 05-14-2016 Note Date & Type Note Facility documented as of this encounter (statuses as of 12/17/2022) [facility] Evaluation note Note Date & Type Note Facility documented in this encounter [facility] Evaluation note Note Date & Type Note Facility documented in this encounter [facility] Summary Purpose Family History No Family History Records Found Advance Directives No Advanced Directives Records Found Additional Source Comments Source Comments (unrecognize d section and content) In the event this informatio n is protected by the Federal Confidentiality of Alcohol and Drug Abuse Patient Records regulations: The Federal rules restrict any use of the information to criminally investigate or prosecute any alcohol or drug abuse patient.[facility] the event this information is protected by the Federal Confidentiality of Alcohol and Drug Abuse Patient Records regulations: The Federal rules restrict any use of the information to criminally investigate or prosecute any alcohol or drug abuse patient.[facility] Reason for Visit (unrecogniz ed section and content) Care Teams (unrecognized sec tion and content) Carroting Machine Offbearer Relationship Specialty Start Date End Date Gwen Powell NP [address] [address] PCP - General Family Medicine 12/17/22 (unrecognized sect ion and content) No Status Records Found INFORMATION SOURCE (unrecogn ized section and content) FOR RECORDS PERTAINING TO PATIENTS WHO ARE OR HAVE BEEN ENROLLED IN A CHEMICAL DEPENDENCY/SUBSTANCEABUSE PROGRAM, SOME INFORMATION MAY BE OMITTED. This clinical summary was aggregated from multiple sources. Caution should be exercised in using it in the provision of clinical care. This summary normalizes information from multiple sources, and as a consequence, information in this document may materially change the coding, format and clinical context of patient data. In addition, data may be omitted in some cases. CLINICAL DECISIONS SHOULD BE BASED ON THE PRIMARY CLINICAL RECORDS. [facility]. provides no warranty or guarantee of the accuracy or completeness of information in this document.
== END | disposition home or self-care (01) ==
PROVIDERS: PCP Nurse Practitioner Family; Referring Provider Urology; Visit Provider Urology
DX: N20.0 Calculus of kidney (principal); Z12.5 Encounter for screening for malignant neoplasm of prostate
CPT/HCPCS: 36415; 74018; 84153; G0103

== ENCOUNTER → 2023-09-10 | Outpatient (CLI) | payer MEDICARE, SELFPAY ==
[2023-09-10 12:21] LABS: Hematocrit 46.4 % (40-54); Hemoglobin 15.9 g/dL (13.0-16.5); Mean Corp Hgb Conc 34.3 g/dL (32-36); Mean Corpuscular Hgb 29.7 pg (27.0-32.0); Mean Corpuscular Volume 86.7 fL (80-94); Mean Platelet Vol. 9.4 fl (6.2-12.0); Platelet Count 175 K/mm3 (150-450); RBC Distribution Width CV 13.1 % (11.6-14.6); RBC Distribution Width SD 40.8 fl (35.1-43.9); Red Blood Count 5.35 M/mm3 (4.6-6.2); White Blood Count 6.4 K/mm3 (4.4-11.0)
[2023-09-10 12:41] LABS: Vitamin D,25 Hydroxy 53.4 ng/mL
[2023-09-10 12:58] LABS: ALB/GLOB Ratio 0.9 RATIO (0.9-2.4); AST(SGOT) 31 U/L (15-37); Alanine Aminotransfer ALT/SGPT 46 U/L (16-61); Albumin, Serum 3.9 g/dL (3.2-5.0); Alkaline Phosphatase 72 U/L (45-117); Anion Gap 8 (5-15); BUN 19 mg/dL (7-18); BUN/Creat Ratio 19.1 RATIO (10-20); Calcium,Total 9.2 mg/dL (8.5-10.1); Chloride 104 mmol/L (98-107); Cholesterol 133 mg/dL (200); EST Glomerular Filtration Rate 78 mL/min (>60); Est Glom Filt Rate - Afr Amer 94 mL/min (>60); Globulin 4.2 g/dL (2.2-4.2); Glucose 80 mg/dL (74-106); High Density Lipoprotein 42 mg/dL; PSA,Total- Diagnostic 1.14 ng/mL (0.0-4.0); Potassium 3.7 mmol/L (3.5-5.1); Protein, Total 8.1 g/dL (6.4-8.2); Sodium Level 139 mmol/L (136-145); Triglycerides 137 mg/dL; Very Low Density Lipoprotein 27 mg/dL (5-40)
== END | disposition home or self-care (01) ==
LOC: BFHLAB 10:40
PROVIDERS: PCP Nurse Practitioner Family; Visit Provider Nurse Practitioner Family
DX: I10 Essential (primary) hypertension (principal); E55.9 Vitamin D deficiency, unspecified; N40.0 Benign prostatic hyperplasia without lower urinary tract symptoms; E78.5 Hyperlipidemia, unspecified
CPT/HCPCS: 36415; 80053; 80061; 82306; 84153; 85027

== ENCOUNTER → 2024-03-01 | Outpatient (CLI) | payer MEDICARE, SELFPAY ==
--- NOTE | 2024-03-01 07:26 | RAD_ITS ---
STUDY: X-RAY CHEST REASON FOR EXAM: Male, 73 years old. COUGH TECHNIQUE: PA and lateral views of the chest. COMPARISON: 08/22/2021 FINDINGS: Stable elevation of the right hemidiaphragm Chronic interstitial changes in both lung garzon without a superimposed acute pulmonary process. Normal size heart. Normal mediastinum and jane. Normal visualized pulmonary arteries. Normal visualized aortic arch and descending thoracic aorta. There are diffuse degenerative changes of the visualized thoracic spine. Normal visualized ribs, clavicles, and shoulders. There is no demonstrated abnormality of the visualized soft tissue structures of the upper abdomen. RAD/Chest PA and Lateral IMPRESSION: Chronic interstitial changes without a superimposed acute pulmonary process Electronically Signed: Robel Howell MD at 9:08 EDT ,
[2024-03-01 10:11] LABS: Absolute Lymphocyte Count 1.91 X10^3/uL (0.83-4.51); Absolute Neutrophil Count 4.3 X10^3/uL (2.0-7.7); Basophil# 0.04 X10^3/uL; Basophil% 0.5 % (0-1); Eosinophil# 0.31 X10^3/uL; Eosinophils% 4.2 % (0-5); Hematocrit 46.9 % (40-54); Hemoglobin 15.8 g/dL (13.0-16.5); Lymphocyte # 1.91 X10^3/ul (0.83-4.51); Lymphocyte % 25.7 % (19-41); Mean Corp Hgb Conc 33.7 g/dL (32-36); Mean Corpuscular Hgb 28.7 pg (27.0-32.0); Mean Corpuscular Volume 85.3 fL (80-94); Monocyte# 0.82 X10^3/uL; NRBC Flagged by Analyzer 0 % (0-5); Neutrophil # 4.33 X10^3/uL (2.7-7.7); Neutrophil % 58.2 % (47-70); Platelet Count 186 K/mm3 (150-450); RBC Distribution Width CV 13.3 % (11.6-14.6); RBC Distribution Width SD 41.3 fl (35.1-43.9); White Blood Count 7.4 K/mm3 (4.4-11.0)
[2024-03-01 10:28] LABS: Vitamin B12 447 pg/mL (211-911)
[2024-03-01 11:23] LABS: ALB/GLOB Ratio 0.8 RATIO (0.9-2.4); AST(SGOT) 39 U/L (15-37); Alanine Aminotransfer ALT/SGPT 44 U/L (16-61); Albumin, Serum 3.7 g/dL (3.2-5.0); Alkaline Phosphatase 69 U/L (45-117); Anion Gap 9 (5-15); BUN 18 mg/dL (7-18); BUN/Creat Ratio 17.1 RATIO (10-20); Calcium,Total 9.6 mg/dL (8.5-10.1); Chloride 102 mmol/L (98-107); Cholesterol 127 mg/dL (200); Creatinine, Serum 1.05 mg/dL (0.70-1.30); EST Glomerular Filtration Rate 73 mL/min (>60); Est Glom Filt Rate - Afr Amer 89 mL/min (>60); Ferritin 363 ng/mL (26-388); Globulin 4.4 g/dL (2.2-4.2); Glucose 91 mg/dL (74-106); High Density Lipoprotein 42 mg/dL; Iron 76 ug/dL (65-175); Magnesium 2.3 mg/dL (1.6-2.6); Potassium 3.1 mmol/L (3.5-5.1); Protein, Total 8.1 g/dL (6.4-8.2); Sodium Level 138 mmol/L (136-145); T4 Free Direct 0.97 ng/dL (0.76-1.46); Triglycerides 121 mg/dL; Very Low Density Lipoprotein 24 mg/dL (5-40)
[2024-03-01 11:39] LABS: BNP,B-Type NATRIURETIC PEPTIDE 25.8 pg/mL (0-100)
== END | disposition home or self-care (01) ==
LOC: MTLAB 07:23
PROVIDERS: PCP Nurse Practitioner Family; Referring Provider Nurse Practitioner Family; Visit Provider Nurse Practitioner Family
DX: I10 Essential (primary) hypertension (principal); E78.5 Hyperlipidemia, unspecified; E03.9 Hypothyroidism, unspecified; E55.9 Vitamin D deficiency, unspecified; D50.9 Iron deficiency anemia, unspecified; R06.02 Shortness of breath; E83.42 Hypomagnesemia; R05.3 Chronic cough
CPT/HCPCS: 36415; 71046; 80053; 80061; 82306; 82607; 82728; 83540; 83735; 83880; 84439; 84443; 85025

== ENCOUNTER → 2024-03-31 | Outpatient (CLI) | payer MEDICARE, SELFPAY ==
[2024-03-31 15:15] LABS: Absolute Lymphocyte Count 2.36 X10^3/uL (0.83-4.51); Absolute Neutrophil Count 4.3 X10^3/uL (2.0-7.7); Basophil# 0.06 X10^3/uL; Basophil% 0.8 % (0-1); Eosinophils% 2.6 % (0-5); Hematocrit 44.3 % (40-54); Hemoglobin 14.9 g/dL (13.0-16.5); Lymphocyte # 2.36 X10^3/ul (0.83-4.51); Lymphocyte % 30.8 % (19-41); Mean Corp Hgb Conc 33.6 g/dL (32-36); Mean Corpuscular Hgb 28.6 pg (27.0-32.0); Mean Platelet Vol. 9.4 fl (6.2-12.0); Monocyte% 9.2 % (0-10); NRBC Flagged by Analyzer 0 % (0-5); Neutrophil # 4.31 X10^3/uL (2.7-7.7); Neutrophil % 56.3 % (47-70); Platelet Count 174 K/mm3 (150-450); RBC Distribution Width CV 13.6 % (11.6-14.6); RBC Distribution Width SD 42.5 fl (35.1-43.9); Red Blood Count 5.21 M/mm3 (4.6-6.2); White Blood Count 7.7 K/mm3 (4.4-11.0)
[2024-03-31 15:27] LABS: CRP 4.22 mg/L (0.0-3.0)
[2024-03-31 15:34] LABS: Erythrocyte Sedimentation Rate 19 mm/hr (0-20)
== END | disposition home or self-care (01) ==
LOC: MTLAB 11:28
PROVIDERS: PCP Nurse Practitioner Family; Referring Provider Specialist; Visit Provider Specialist
DX: T84.82XA Fibrosis due to internal orthopedic prosthetic devices, implants and grafts, initial encounter (principal); I10 Essential (primary) hypertension; M25.562 Pain in left knee; X58.XXXA Exposure to other specified factors, initial encounter
CPT/HCPCS: 36415; 85025; 85652; 86140

== ENCOUNTER → 2024-07-20 | Outpatient (CLI) | payer MEDICARE, SELFPAY ==
[2024-07-20 11:48] LABS: PSA,Total - Annual Screen 1.24 ng/mL (0.02-4.00)
== END | disposition home or self-care (01) ==
PROVIDERS: PCP Nurse Practitioner Family; Referring Provider Urology; Visit Provider Urology
DX: Z12.5 Encounter for screening for malignant neoplasm of prostate (principal)
CPT/HCPCS: 36415; 84153; G0103

== ENCOUNTER → 2024-12-14 | Outpatient (CLI) | payer MEDICARE, SELFPAY ==
--- NOTE | 2024-12-14 11:02 | RAD_ITS ---
PROCEDURE: TOE(S) MIN 2 VIEWS 12/14/2024 REASON FOR EXAM: TOE INJURY TECHNIQUE: TOE(S) MIN 2 VIEWS COMPARISON: None FINDINGS: There is an oblique fracture of the 5th proximal phalanx with slight angulation. There is no dislocation. Vascular calcifications are noted. RAD/Toe(s) Min 2 Views IMPRESSION: There is an oblique fracture of the 5th proximal phalanx with slight angulation . Reading Location: [facility]
== END | disposition home or self-care (01) ==
LOC: MTRAD 11:01
PROVIDERS: PCP Nurse Practitioner Family; Referring Provider Physician Assistant Surgical; Visit Provider Physician Assistant Surgical
DX: S99.922A Unspecified injury of left foot, initial encounter (principal); X58.XXXA Exposure to other specified factors, initial encounter
CPT/HCPCS: 73660

== ENCOUNTER → 2025-03-02 | Outpatient (CLI) | payer MEDICARE, SELFPAY ==
[2025-03-02 12:28] LABS: Hematocrit 43.3 % (40-54); Hemoglobin 15.2 g/dL (13.0-16.5); Immature Granulocytes Count 0.010 X10^3/uL (0.0-0.0); Mean Corp Hgb Conc 35.1 g/dL (32-36); Mean Corpuscular Volume 84.2 fL (80-94); Mean Platelet Vol. 9.7 fl (6.2-12.0); NRBC Flagged by Analyzer 0 % (0-5); Platelet Count 171 K/mm3 (150-450); RBC Distribution Width CV 13.7 % (11.6-14.6); RBC Distribution Width SD 42.4 fl (35.1-43.9); Red Blood Count 5.14 M/mm3 (4.6-6.2); White Blood Count 5.4 K/mm3 (4.4-11.0)
[2025-03-02 12:31] LABS: AST(SGOT) 47 U/L (<=37); Alanine Aminotransfer ALT/SGPT 40 U/L (<=46); Albumin, Serum 4.1 g/dL (3.4-4.8); Alkaline Phosphatase 59 U/L (40-129); Anion Gap 12 (5-15); BUN 18 mg/dL (4-19); BUN/Creat Ratio 20.6 RATIO (10-20); Calcium,Total 9.8 mg/dL (7.6-11.0); Carbon Dioxide 27.6 mmol/L (21.0-32.0); Chloride 101 mmol/L (98-108); Cholesterol 120 mg/dL (<=200); Globulin 3.3 g/dL (2.2-4.2); Glucose 94 mg/dL (70-99); Low Density Lipoprotein Calc. 53 mg/dL; Potassium 3.1 mmol/L (3.3-5.1); Triglycerides 146 mg/dL; Very Low Density Lipoprotein 29 mg/dL (5-40); cholesterol:hdl ratio screen 3.14
== END | disposition home or self-care (01) ==
LOC: MTLAB 09:37
PROVIDERS: PCP Nurse Practitioner Family; Referring Provider Nurse Practitioner Family; Visit Provider Nurse Practitioner Family
DX: I10 Essential (primary) hypertension (principal); E78.5 Hyperlipidemia, unspecified
CPT/HCPCS: 36415; 80053; 80061; 85025